=== PATIENT | female | born 1930 | race Caucasian/White ===

== ENCOUNTER 2018-12-01 07:33 | Inpatient (IN) | payer OTHER, MEDICARE ==
--- NOTE | 2018-12-01 08:06 | PDOC ---
History of Present Illness - General Chief Complaint: Nausea/Vomiting Stated Complaint: ABD PAIN Time Seen by Provider: 12/01/18 08:04 - History of Present Illness Initial Comments: 88yo F with PMH of HTN, HLD, pancreatitis, cholecystectomy, ERCP in 2016 presenting with abdominal pain. Patient states her pain started at 2:30 am and describes it as "sharp" and rated 10/10. She has never had pain like this before. Patient also endorses nausea and 4-5 episodes of NBNB vomiting. Last bowel movement was yesterday morning and was a normal formed brown stool with blood. Denies urinary symptoms, chest pain, or shortness of breath. No fevers, but endorses chills. PCP: Dr. Caldwell Past History - Past Medical History Allergies/Adverse Reactions: Allergies Allergy/AdvReac Type Severity Reaction Status Date / Time No Known Allergies Allergy Verified 12/01/18 07:48 Home Medications: Ambulatory Orders Amlodipine Besylate [Norvasc -] 7.5 mg PO DAILY 08/29/16 Aspirin [Ecotrin] 81 mg PO DAILY 08/29/16 Metoprolol Succinate [Toprol XL -] 50 mg PO DAILY 08/30/16 Atorvastatin Ca [Lipitor] 80 mg PO HS 06/12/17 Ubidecarenone/Vitamin E [Co Q-10 50 mg Softgel] 1 tab PO DAILY 06/12/17 Anemia: No Asthma: No Cancer: No Cardiac Disorders: No CVA: No COPD: No CHF: No Dementia: No Diabetes: No GI Disorders: No Disorders: No HTN: Yes Hypercholesterolemia: No Liver Disease: No Seizures: No Thyroid Disease: No - Surgical History Cholecystectomy: Yes - Suicide/Smoking/Psychosocial Hx Smoking History: Former smoker Have you smoked in the past 12 months: No Information on smoking cessation initiated: No Hx Alcohol Use: No Drug/Substance Use Hx: No Substance Use Type: None Hx Substance Use Treatment: No Review of Systems - Review of Systems Comments:: Constitutional: no fever, +chills HEENT: no throat pain, no dysphagia Cardiovascular: no chest pain, no palpitations Respiratory: no cough, no shortness of breath Gastrointestinal: +abdominal pain, +vomiting Genitourinary: no dysuria, no frequency Musculoskeletal: no myalgia, no arthralgia Skin: no rash, no itching Neurologic: no headache, no dizziness *Physical Exam - Vital Signs Last Vital Signs Temp Pulse Resp BP Pulse Ox 97.8 F 103 H 20 154/93 95 12/01/18 07:54 12/01/18 07:54 12/01/18 07:54 12/01/18 07:54 12/01/18 07:54 - Physical Exam Comments: General: Awake, alert, and fully oriented, in no acute distress Head: No signs of trauma Eyes: EOMI, sclera anicteric ENT: Dry mucus membranes Neck: Normal ROM, supple Lungs: Lungs clear, Normal breath sounds Cardio: Regular rhythm, S1 and S2 present Abdomen: Tender to palpation of RUQ. Soft. No guarding, no rebound, no masses Extremities: Normal range of motion, Distal pulses present, 1+ edema SKIN: Warm, Dry, normal turgor Neurologic: Cranial nerves II through XII grossly intact. Normal speech Moderate Sedation - Procedure Monitoring Vital Signs: Procedure Monitoring Vital Signs Temperature 97.8 F 12/01/18 07:54 Pulse Rate 103 H 12/01/18 07:54 Respiratory Rate 20 12/01/18 07:54 Blood Pressure 154/93 12/01/18 07:54 O2 Sat by Pulse Oximetry (%) 95 12/01/18 07:54 ED Treatment Course - LABORATORY CBC & Chemistry Diagram: 12/01/18 08:50 12/01/18 08:50 Medical Decision Making - Medical Decision Making 88yo F with PMH of HTN, HLD, pancreatitis, cholecystectomy, ERCP in 2016 presenting with abdominal pain. Per chart review, patient was seen in 2016 at this hospital with similar complaint. ERCP was performed. Stent placed and removed. DDX including but not limited to pancreatitis, acalculous biliary colic, nephrolithiasis, SBO, mesenteric ischemia CBC, CMP, lipase, EKG, lactate 500cc NS, 4mg zofran, 2mg morphine EKG: rate 93, QTc 427, NSR 12/01/18 09:20 Lactate 3.3, another 500cc ordered. WBC=12 Transaminitis, AST/ZOM=3196/863 ALP 317 Tpn negative Lipase negative BNP 680 (patient has been much higher in the past) RUQ pathology likely; will assess with RUQ US Patient reports some relief of abd pain, now rated 8/10 and "pounding" instead of "sharp" 12/01/18 09:34 RUQ US: Choledocholithiasis cannot be excluded 12/01/18 12:59 Plan to consult GI and admit. 12/01/18 13:[address] Mayfield GI, who recommended antibiotics (levaquin/ flagyl or zosyn) and MRCP Zosyn and MRCP ordered 12/01/18 14:00 *DC/Admit/Observation/Transfer Diagnosis at time of Disposition: Choledocholithiasis - Discharge Dispostion Condition at time of disposition: Guarded Decision to Admit order: Yes - Referrals - Patient Instructions - Post Discharge Activity
[2018-12-01] MEDS ORDERED: ONDANSETRON 4 MG/2 ML VIAL IVPUSH ONE (08:30)
[2018-12-01] MEDS ORDERED: SODIUM CHLORIDE 500 ML IV STA ×2 (08:31→10:49)
[2018-12-01] MEDS ORDERED: morphine CARPU-JECT 2 MG/1 ML DISP.SYRIN IVPUSH ONE ×2 (08:45→13:36)
[2018-12-01] MEDS ORDERED: ONDANSETRON 4 MG/2 ML VIAL ONE (08:53)
[2018-12-01] MEDS ORDERED: MORPHINE SULFATE 2 MG/ML VIAL ONE ×2 (08:53→14:38)
--- NOTE | 2018-12-01 08:54 | PDOC ---
Attending Attestation - Resident Resident Name: Gail Ybarra - ED Attending Attestation I have performed the following: I have examined & evaluated the patient, The case was reviewed & discussed with the resident, I agree w/resident's findings & plan, Exceptions are as noted - HPI HPI: 12/01/18 08:55 88y F hx of cholecystemy, pancratitis sp biliar obstruction , htn, hl, presents abd pain, n/v since last night around 230am, worse in the BARAK, pain is 10/10. endorses of nausea and 4 episodes of nbnb vomiting. last bm was last night without bpr, melena. denies any urinary symptoms denies fever, cp, sob, cough GI Lantin PE: tachy lungs cta b/l abd, BARAK ttp, neg murphies 2+ pitting edmea b/l ddx includings acalculus biliar disease, pancreatitis, mesenteric istchemia, consider acs , kidney stones morphine for pain NS for management of the pts tachycardia zofraon for nausea will reassess - Physicial Exam PE: 12/02/18 16:45 see above - Medical Decision Making 12/01/18 14:53 labs reviewd noted for elevated LFTs US performed stqarted abx consulted GI will admit for MRCP dx eleveted liver enzyems, suspected choledocholithaisis Heart Score/ECG Review - ECG Impressions Comment:: 12/01/18 11:02 Twelve-lead EKG was performed and reviewed by me. There is normal sinus rhythm with a normal rate. Rate of 93 The axis is normal. The intervals are normal. Nonspecific ST wave changes
[2018-12-01 09:21] LABS: BASO % 0.1 % (0-2.0); HEMATOCRIT 36.4 % (32.4-45.2); HEMOGLOBIN 12.3 GM/dL (10.7-15.3); LYMPH % 2.3 % (8-40); MCH 29.4 pg (25.7-33.7); MCHC 33.7 g/dl (32.0-36.0); MEAN CELL VOLUME 87.2 fl (80-96); MEAN PLT VOLUME 7.9 fl (7.5-11.1); NEUT % 96.6 % (42.8-82.8); PLATELET COUNT 239 K/MM3 (134-434); RBC 4.17 M/mm3 (3.60-5.2); RDW 13.9 % (11.6-15.6)
[2018-12-01 10:27] LABS: ALBUMIN 3.8 g/dl (3.4-5.0); ALK PHOS 317 U/L (45-117); ANION GAP 12 MMOL/L (8-16); BILIRUBIN,TOTAL 2.5 mg/dL (0.2-1); BLOOD UREA NITROGEN 26 mg/dL (7-18); CALCIUM 8.8 mg/dL (8.5-10.1); CHLORIDE 101 mmol/L (98-107); CO2 26 mmol/L (21-32); CREATININE 1.4 mg/dL (0.55-1.3); GLUCOSE,RANDOM 112 mg/dL (74-106); LIPASE 187 U/L (73-393); N-TERMINAL BNP 680.2 pg/ml (5-450); SGOT/AST 1795 U/L (15-37); SGPT/ALT 863 U/L (13-61); SODIUM 138 mmol/L (136-145); TOT PROT 7.5 g/dl (6.4-8.2)
[2018-12-01] MEDS ORDERED: PIPERACILLIN/TAZOB 4.5 GM 4.5 GM in DEXTROSE 5%-WATER 100 ML IVPB ONE (14:01)
[2018-12-01] MEDS ORDERED: ONDANSETRON 4 MG/2 ML VIAL IVPUSH PRN (14:12)
[2018-12-01] MEDS ORDERED: morphine SULFATE 4 MG/ML VIAL IVPUSH PRN (14:12)
[2018-12-01] MEDS ORDERED: POTASSIUM CHLORIDE 20 MEQ PREMIX IVPB 100 ML IVPB ONE (14:18)
[2018-12-01 14:21] LABS: ANISOCYTOSIS 2+; MACROCYTOSIS 0; OVALOCYTE 1+; PLATELET ESTIMATE NORMAL
--- NOTE | 2018-12-01 14:21 | HP ---
Admitting History and Physical - Primary Care Physician PCP: Shawn Caldwell - Admission Chief Complaint: Epigastric pain History of Present Illness: 88 yrs old pleasant F lives alone , independent, H/O HTN, Dyslipedemia, Cholycystectomy and pancreatitis, present with c/o epigastric pain radiates to back 1010 started last night around 2.30 am with nausea and recurrent vomiting mixed with bile and ingested food denies any fever, chills, constipation or diarrhea, came to Ed for evaluation w/u shows elevated TWBC, SGOT/SGPT alk phosphate and TB , abd ultrasound shows intrahepatic and extrahepatic dilatation of CBD, Gi consulted recommended MRCP and Hospitalization with IV abx, at the time of examination, jd patient was admitted on 08/30/2016 with Dilated CBD after Cholycytectomy underwent ERCP by Dr. 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 for EUS (Dr ROSSI). History Source: Patient - Past Medical History Cardiovascular: Yes: Hyperlipdemia Gastrointestinal: Yes: Pancreatitis Hepatobiliary: Yes: Choledocholithiasis - Past Surgical History Past Surgical History: Yes: Cholecystectomy - Smoking History Smoking history: Former smoker Have you smoked in the past 12 months: No - Alcohol/Substance Use Hx Alcohol Use: No Home Medications - Allergies Allergies/Adverse Reactions: Allergies Allergy/AdvReac Type Severity Reaction Status Date / Time No Known Allergies Allergy Verified 12/01/18 07:48 - Home Medications Home Medications: Ambulatory Orders Amlodipine Besylate [Norvasc -] 7.5 mg PO DAILY 08/29/16 Aspirin [Ecotrin] 81 mg PO DAILY 08/29/16 Metoprolol Succinate [Toprol XL -] 50 mg PO DAILY 08/30/16 Atorvastatin Ca [Lipitor] 80 mg PO HS 06/12/17 Ubidecarenone/Vitamin E [Co Q-10 50 mg Softgel] 1 tab PO DAILY 06/12/17 Family Disease History - Family Disease History Family History: Unremarkable (not contributary to this hospitalization) Review of Systems - Review of Systems Constitutional: denies: Chills, Diaphoresis, Fever, Lethargy Eyes: denies: Blind Spots, Blurred Vision HENT: denies: Difficult Swallowing, Ear Discharge, Ear Pain Neck: denies: Decreased ROM, Lumps, Pain on Movement, Stiffness Cardiovascular: denies: Chest Pain, Edema, Palpitations, Shortness of Breath Respiratory: denies: Cough, Exercise Intolerance, Hemoptysis Gastrointestinal: reports: Abdominal Pain, Nausea, Vomiting. denies: Constipation, Diarrhea Genitourinary: denies: Burning, Discharge Musculoskeletal: denies: Back Pain, Crepitus Neurological: denies: Change in LOC, Change in Speech, Confusion Pain Intensity: 0 Physical Examination Vital Signs: Vital Signs Temperature 97.8 F 12/01/18 07:54 Pulse Rate 103 H 12/01/18 07:54 Respiratory Rate 20 12/01/18 07:54 Blood Pressure 154/93 12/01/18 07:54 O2 Sat by Pulse Oximetry (%) 95 12/01/18 07:54 Constitutional: Yes: No Distress, Calm HENT: Yes: Atraumatic, Other (Mm moist, no anemia, no Jaundice, PERRLA) Neck: Yes: Supple, Trachea Midline Cardiovascular: Yes: Regular Rate and Rhythm, S1, S2. No: JVD, Gallop, Murmur Respiratory: Yes: Regular, CTA Bilaterally Gastrointestinal: Yes: Normal Bowel Sounds, Soft, Tenderness, Epigastrium Musculoskeletal: Yes: Back Pain. No: Joint Stiffness, Joint Swelling Edema: No Edema: RUE: Trace, LLE: Trace Peripheral Pulses WNL: Yes Peripheral Pulses: Left Doralis Pedis: 1+, Right Dorsalis Pedis: 1+ Neurological: Yes: Alert, Oriented, Cran Nerves II-XII Intact ...Motor Strength: WNL, LUE, LLE, RUE, RLE Labs: CBC, BMP CBC,CMP WBC 12.0 K/mm3 (4.0-10.0) H 12/01/18 08:50 RBC 4.17 M/mm3 (3.60-5.2) 12/01/18 08:50 Hgb 12.3 GM/dL (10.7-15.3) 12/01/18 08:50 Hct 36.4 % (32.4-45.2) 12/01/18 08:50 MCV 87.2 fl (80-96) 12/01/18 08:50 MCH 29.4 pg (25.7-33.7) 12/01/18 08:50 MCHC 33.7 g/dl (32.0-36.0) 12/01/18 08:50 RDW 13.9 % (11.6-15.6) 12/01/18 08:50 Plt Count 239 K/MM3 (134-434) D 12/01/18 08:50 MPV 7.9 fl (7.5-11.1) 12/01/18 08:50 Absolute Neuts (auto) 11.6 K/mm3 (1.5-8.0) H 12/01/18 08:50 Neutrophils % 96.6 % (42.8-82.8) H D 12/01/18 08:50 Neutrophils % (Manual) 78.0 % (42.8-82.8) 12/01/18 08:50 Band Neutrophils % 16.0 % 12/01/18 08:50 Lymphocytes % 2.3 % (8-40) L D 12/01/18 08:50 Lymphocytes % (Manual) 2.0 % (8-40) L 12/01/18 08:50 Monocytes % 1.0 % (3.8-10.2) L D 12/01/18 08:50 Monocytes % (Manual) 1 % (3.8-10.2) L 12/01/18 08:50 Eosinophils % 0.0 % (0-4.5) D 12/01/18 08:50 Eosinophils % (Manual) 0.0 % (0-4.5) 12/01/18 08:50 Basophils % 0.1 % (0-2.0) 12/01/18 08:50 Basophils % (Manual) 0.0 % (0-2.0) 12/01/18 08:50 Myelocytes % (Man) 0 % (0-2) 12/01/18 08:50 Promyelocytes % (Man) 0 % (0-2) 12/01/18 08:50 Blast Cells % (Manual) 0 % (0-0) 12/01/18 08:50 Nucleated RBC % 0 % (0-0) 12/01/18 08:50 Metamyelocytes 3 % (0-2) H 12/01/18 08:50 Hypochromia 0 12/01/18 08:50 Platelet Estimate Normal 12/01/18 08:50 Platelet Comment Present 12/01/18 08:50 Polychromasia 0 12/01/18 08:50 Poikilocytosis 0 03/02/19 08:50 Anisocytosis 2+ 12/01/18 08:50 Microcytosis 2+ 12/01/18 08:50 Macrocytosis 0 12/01/18 08:50 Spherocytes 2+ 12/01/18 08:50 Ovalocytes 1+ 12/01/18 08:50 Derik Cells 1+ 12/01/18 08:50 Acanthocytes (Spur) 1+ 12/01/18 08:50 Sodium 138 mmol/L (136-145) 12/01/18 08:50 Potassium 3.0 mmol/L (3.5-5.1) L 12/01/18 08:50 Chloride 101 mmol/L (98-107) 12/01/18 08:50 Carbon Dioxide 26 mmol/L (21-32) 12/01/18 08:50 Anion Gap 12 MMOL/L (8-16) 12/01/18 08:50 BUN 26 mg/dL (7-18) H 12/01/18 08:50 Creatinine 1.4 mg/dL (0.55-1.3) H 12/01/18 08:50 Creat Clearance w eGFR 35.65 (>60) 12/01/18 08:50 Random Glucose 112 mg/dL (74-106) H 12/01/18 08:50 Lactic Acid 1.8 mmol/L (0.4-2.0) 12/01/18 12:54 Calcium 8.8 mg/dL (8.5-10.1) 12/01/18 08:50 Total Bilirubin 2.5 mg/dL (0.2-1) H 12/01/18 08:50 AST 1795 U/L (15-37) H 12/01/18 08:50 ALT 863 U/L (13-61) H 12/01/18 08:50 Alkaline Phosphatase 317 U/L (45-117) H 12/01/18 08:50 Troponin I < 0.02 ng/ml (0.00-0.05) 12/01/18 08:50 B-Natriuretic Peptide 680.2 pg/ml (5-450) H 12/01/18 08:50 Total Protein 7.5 g/dl (6.4-8.2) 12/01/18 08:50 Albumin 3.8 g/dl (3.4-5.0) 12/01/18 08:50 Lipase 187 U/L (73-393) 12/01/18 08:50 Imaging - Results Ultrasound: Report Reviewed (Intrahepatic and extrahepatic CBD Dilatation 2 CM) MRI: Report Reviewed (MRCP: Pending) Problem List - Problems (1) Choledocholithiasis Assessment/Plan: Patient ultrasound shows Dilated CBD with pain and rising BUN Creat possibility of ascending cholangitis with obstruction in CBD patient has H/O Cholycystectomy in the past. GI consulted recommended IV abx, MRCP , NPO except meds and pain control. previously in 08/2016 patient was presented with similar presentation underwent ERCP and stent placement patient was transferred to Dr Rossi at [facility] fir EUS to establish a diagnosis cholangicarcinoma/proximal CBD stricture. Code(s): K80.50 - CALCULUS OF BILE DUCT W/O CHOLANGITIS OR CHOLECYST W/O OBST (2) Biliary tract obstruction Assessment/Plan: Elevted Alk Phosphate TB high SGOT/PT with Code(s): K83.1 - OBSTRUCTION OF BILE DUCT (3) HTN (hypertension) Assessment/Plan: Well controlled cont current medication Code(s): I10 - ESSENTIAL (PRIMARY) HYPERTENSION (4) Hypercholesteremia Assessment/Plan: cont statin Code(s): E78.00 - PURE HYPERCHOLESTEROLEMIA, UNSPECIFIED (5) Hypokalemia Assessment/Plan: repleted F/U BMP Code(s): E87.6 - HYPOKALEMIA
[2018-12-01] MEDS ORDERED: PANTOPRAZOLE SODIUM 40 MG VIAL ONE (14:39)
[2018-12-01] MEDS ORDERED: PIPERACILLIN/TAZOB 4.5 GM 4.5 GM/100 ML BAG IVPB ONE ×2 (14:39→14:40)
[2018-12-01] MEDS ORDERED: KCL 10 MEQ IVPB 10 MEQ/100 ML INFUS.BAG IVPB ONE (14:40)
[2018-12-01] MEDS: SODIUM CHLORIDE 1,000 ML IV SCH (14:41)
[2018-12-01] MEDS: PANTOPRAZOLE SODIUM 40 MG VIAL IVPUSH SCH (14:42)
[2018-12-01] MEDS: KCL 10 MEQ IVPB 10 MEQ/100 ML INFUS.BAG IVPB SCH ×2 (15:25→16:33)
[2018-12-01 15:58] VITALS: BMI 26.1
--- NOTE | 2018-12-01 17:44 | CONS ---
DATE OF CONSULTATION: DATE OF DICTATION: 12/01/2018 The patient is an 88-year-old female with a past medical history of hypertension, dyslipidemia, cholecystectomy, pancreatitis, who presents to the hospital with abdominal pain and back pain, which began at 2:30 in the morning. Also with nausea and vomiting. She has never had similar symptoms in the past. She denies any hematemesis, melena, hematochezia, constipation or diarrhea. She also denies fever or chills, previous episodes. No culprit foods and no recent travel or antibiotics. She states she has not had a recent endoscopy or colonoscopy. PAST MEDICAL AND SURGICAL HISTORY: As listed in the HPI. ALLERGIES: No known drug allergies. SOCIAL HISTORY: She is a former smoker. Does not drink or use drugs. MEDICATIONS: Home medications were reviewed and include Norvasc, aspirin, metoprolol, Lipitor and CoQ10. FAMILY HISTORY: Denies any GI or gynecological malignancy. REVIEW OF SYSTEMS: As per the HPI. PHYSICAL EXAMINATION: Vital Signs: Temperature 98.8, pulse 93, blood pressure 130/50, respiratory rate 12, pulse oximetry 98% on room air. General: In no acute distress, pleasant female. HEENT: Anicteric sclerae. Cardiovascular: S1/S2. Regular rate and rhythm. Lungs: Bilaterally clear to auscultation. Abdomen: Soft, with some tenderness to deep palpation in the epigastrium. No rebound or guarding. Extremities: With edema. DIAGNOSTIC STUDIES: White blood cell count 12, hemoglobin 12, hematocrit 36, MCV 87, platelet count 239, neutrophils 96.6. Sodium 138, potassium 3, BUN 26, creatinine 1.4, lactic acid 3.3 and repeat is 1.1. Total bilirubin 2.5. AST 1795, ALT 863, alkaline phosphatase 317. BNP 680. Albumin 3.8. Lipase 187. Troponin is negative. Coags were not drawn. She had an ultrasound of the abdomen which revealed cholecystectomy, dilation of both the intra- and extrahepatic biliary tree with the CBD measuring 2 cm, which is increased in size since 2018, at which time the duct measured 1.7 cm. Calculi were identified within the duct on that study in 2016. Liver is of normal size, without any intrahepatic masses seen. The pancreas is within normal limits. IMPRESSION: Transaminitis, hepatocellular pattern, also with a dilated biliary tree and a previous history of scans which revealed choledocholithiasis. It is unclear if her ducts were ever cleared at the time. Included in the differential diagnosis is recurrent obstruction, choledocholithiasis, and acute hepatitis. RECOMMENDATION: N.p.o., IV fluids. Would start her on empiric antibiotics, Levaquin and Flagyl or Zosyn. MRCP will be ordered to further evaluate the biliary three. Would also obtain a surgery consultation. Trend her liver tests q.12 hours. Would also obtain an INR. Chronic and inherited liver serologies will be ordered. I will follow with you. DO ENRRIQUE LEBLANC/[id number]
[2018-12-01] MEDS ORDERED: DEXTROSE 5%-WATER 100 ML IVPB ONE (20:18)
[2018-12-01] MEDS ORDERED: PIPERACILLIN/TAZOBACTAM 4.5 GM VIAL IVPB ONE (20:18)
[2018-12-01] MEDS: PIPERACILLIN/TAZOB 4.5 GM 4.5 GM in DEXTROSE 5%-WATER 100 ML IVPB SCH (21:26)
[2018-12-02] MEDS ORDERED: PIPERACILLIN/TAZOBACTAM 4.5 GM VIAL IVPB ONE ×2 (00:05→08:44)
[2018-12-02] MEDS ORDERED: DEXTROSE 5%-WATER 100 ML IVPB ONE ×2 (00:05→08:44)
[2018-12-02 01:13] LABS: URINE APPEARANCE CLEAR; URINE BILIRUBIN NEGATIVE (<2.0 mg/dL); URINE COLOR DKYELLOW; URINE GLUCOSE (UA) NEGATIVE (NEGATIVE); URINE KETONE NEGATIVE (NEGATIVE); URINE LEUK ESTERASE NEGATIVE (NEGATIVE); URINE NITRITE NEGATIVE (NEGATIVE); URINE PROTEIN 2+ (NEGATIVE); URINE UROBILINOGEN 4.0 E.U/dl mg/dL (0.2-1.0)
[2018-12-02 01:18] LABS: EPI CELLS RARE /HPF (FEW)
[2018-12-02] MEDS: PIPERACILLIN/TAZOB 4.5 GM 4.5 GM in DEXTROSE 5%-WATER 100 ML IVPB SCH ×5 (03:00→19:40)
[2018-12-02 07:50] LABS: BASO % 0.2 % (0-2.0); EOS % 0.1 % (0-4.5); HEMATOCRIT 33.5 % (32.4-45.2); HEMOGLOBIN 11.5 GM/dL (10.7-15.3); LYMPH % 1.6 % (8-40); MCH 29.9 pg (25.7-33.7); MCHC 34.4 g/dl (32.0-36.0); MEAN CELL VOLUME 86.9 fl (80-96); MEAN PLT VOLUME 8.2 fl (7.5-11.1); MONO % 2.3 % (3.8-10.2); NEUT % 95.8 % (42.8-82.8); PLATELET COUNT 159 K/MM3 (134-434); RBC 3.86 M/mm3 (3.60-5.2); WHITE BLOOD COUNT 15.4 K/mm3 (4.0-10.0)
[2018-12-02 08:16] LABS: INR 1.24 (0.83-1.09); PROTHROMBIN TIME (PATIENT) 14.7 SEC (9.7-13.0)
[2018-12-02 08:30] LABS: ALK PHOS 250 U/L (45-117); ANION GAP 10 MMOL/L (8-16); BILIRUBIN,TOTAL 5.1 mg/dL (0.2-1); BLOOD UREA NITROGEN 18 mg/dL (7-18); CALCIUM 7.8 mg/dL (8.5-10.1); CHLORIDE 101 mmol/L (98-107); CO2 26 mmol/L (21-32); CREATININE 1.3 mg/dL (0.55-1.3); GLUCOSE,RANDOM 101 mg/dL (74-106); SGOT/AST 792 U/L (15-37); SGPT/ALT 653 U/L (13-61); SODIUM 137 mmol/L (136-145); TOT PROT 6.2 g/dl (6.4-8.2)
[2018-12-02] MEDS: amLODIPine BESYLATE 2.5 MG TABLET (FP) PO SCH ×3 (09:07→11:01)
[2018-12-02] MEDS: PANTOPRAZOLE SODIUM 40 MG VIAL IVPUSH SCH (09:08)
[2018-12-02] MEDS: ASPIRIN COATED 81 MG TABLET.EC PO SCH ×4 (09:08→11:00)
--- NOTE | 2018-12-02 09:45 | PN ---
Progress Note (short form) - Note Progress Note: ID consult dictated abdominal pain abnl lfts leukocytosis dilated CBD r/o biliary sepsis r/o retained stone ckd prior history of abnormal lfts in 2016 s/p ercp 2016 transferred to [facility]- reports stent removed and that she had a stone at that time also episode of hemorrhoidal bleeding at that time reports hot flashes, not aware if she had fever abdominal pain and vomiting started suddenly on 11/30 elevated lfts, elevated wbc and lactic acid in ED us with dilated hepatic ducts and CBD seen by GI for MRCP continue zosyn adjust for crcl 32 Problem List - Problems (1) Biliary sepsis Code(s): K83.09 - OTHER CHOLANGITIS (2) Abnormal LFTs Code(s): R94.5 - ABNORMAL RESULTS OF LIVER FUNCTION STUDIES (3) Common bile duct dilatation Code(s): K83.8 - OTHER SPECIFIED DISEASES OF BILIARY TRACT (4) CKD (chronic kidney disease) Code(s): N18.9 - CHRONIC KIDNEY DISEASE, UNSPECIFIED
--- NOTE | 2018-12-02 10:16 | PN ---
Progress Note, Physician Chief Complaint: right upper quadrant abdominal pain - improved from yesterday ; no fever / nausea or vomiting today - Current Medication List Current Medications: Active Medications Amlodipine Besylate (Norvasc -) 7.5 mg PO DAILY [facility] Last Admin: 12/02/18 09:20 Dose: Not Given Aspirin (Ecotrin -) 81 mg PO DAILY [facility] Last Admin: 12/02/18 09:20 Dose: Not Given Sodium Chloride (Normal Saline -) 1,000 mls @ 100 mls/hr IV ASDIR [facility] Last Admin: 12/01/18 14:41 Dose: 100 mls/hr Piperacillin Sod/Tazobactam (Sod 2.25 gm/ Dextrose) 50 mls @ 100 mls/hr IVPB Q6H-IV [facility]; Protocol Metoprolol Succinate (Toprol Xl -) 50 mg PO DAILY [facility] Last Admin: 12/02/18 09:20 Dose: Not Given Morphine Sulfate (Morphine Sulfate) 4 mg IVPUSH Q6H PRN PRN Reason: PAIN LEVEL 6-10 Ondansetron HCl (Zofran Injection) 4 mg IVPUSH Q6H PRN PRN Reason: NAUSEA Pantoprazole Sodium (Protonix Iv) 40 mg IVPUSH DAILY [facility] Last Admin: 12/02/18 09:08 Dose: 40 mg - Objective Vital Signs: Vital Signs Temperature 97.8 F 12/02/18 06:52 Pulse Rate 107 H 12/02/18 06:52 Respiratory Rate 20 12/02/18 06:52 Blood Pressure 156/78 12/02/18 06:52 O2 Sat by Pulse Oximetry (%) 98 12/01/18 14:30 Constitutional: Yes: Well Nourished Eyes: Yes: WNL HENT: Yes: WNL Neck: Yes: WNL Cardiovascular: Yes: WNL Respiratory: Yes: WNL, Regular, CTA Bilaterally Gastrointestinal: Yes: WNL, Normal Bowel Sounds, Other (ruq tenderness , no rebound or guarding , nml bs) Edema: Yes Labs: CBC, BMP 12/02/18 06:10 12/02/18 06:10 INR, PTT INR 1.24 (0.83-1.09) H 12/02/18 06:10 Problem List - Problems (1) Abnormal LFTs Assessment/Plan: MRCP reviewed - choledocholithiasis - c/w zosyn - NPO / IVf's - trend LFT qd - Plan for ercp Monday - NPO midnight / am labs Code(s): R94.5 - ABNORMAL RESULTS OF LIVER FUNCTION STUDIES (2) Choledocholithiasis Code(s): K80.50 - CALCULUS OF BILE DUCT W/O CHOLANGITIS OR CHOLECYST W/O OBST (3) Common bile duct dilatation Code(s): K83.8 - OTHER SPECIFIED DISEASES OF BILIARY TRACT
[2018-12-02 10:23] LABS: POTASSIUM 2.9 mmol/L (3.5-5.1)
[2018-12-02] MEDS ORDERED: POTASSIUM CHLORIDE ORAL LIQUID 20 MEQ/15 ML PO ONE (10:49)
--- NOTE | 2018-12-02 10:56 | PN ---
Progress Note, Physician Chief Complaint: c/o abd pain - Current Medication List Current Medications: Active Medications Amlodipine Besylate (Norvasc -) 7.5 mg PO DAILY [facility] Last Admin: 12/02/18 09:20 Dose: Not Given Aspirin (Ecotrin -) 81 mg PO DAILY [facility] Last Admin: 12/02/18 09:20 Dose: Not Given Sodium Chloride (Normal Saline -) 1,000 mls @ 100 mls/hr IV ASDIR [facility] Last Admin: 12/01/18 14:41 Dose: 100 mls/hr Piperacillin Sod/Tazobactam (Sod 2.25 gm/ Dextrose) 50 mls @ 100 mls/hr IVPB Q6H-IV [facility]; Protocol Metoprolol Succinate (Toprol Xl -) 50 mg PO DAILY [facility] Last Admin: 12/02/18 09:20 Dose: Not Given Morphine Sulfate (Morphine Sulfate) 4 mg IVPUSH Q6H PRN PRN Reason: PAIN LEVEL 6-10 Ondansetron HCl (Zofran Injection) 4 mg IVPUSH Q6H PRN PRN Reason: NAUSEA Pantoprazole Sodium (Protonix Iv) 40 mg IVPUSH DAILY [facility] Last Admin: 12/02/18 09:08 Dose: 40 mg Potassium Chloride (Potassium Chloride Oral Liquid) 40 meq PO ONCE ONE Stop: 12/02/18 10:50 - Objective Vital Signs: Vital Signs Temperature 97.8 F 12/02/18 06:52 Pulse Rate 107 H 12/02/18 06:52 Respiratory Rate 20 12/02/18 06:52 Blood Pressure 156/78 12/02/18 06:52 O2 Sat by Pulse Oximetry (%) 98 12/01/18 14:30 Genaral:No Distress, Calm c/o abd pain HEENT: Yes: Atraumatic, Other (Mm moist, no anemia, no Jaundice, PERRLA) Neck: Yes: Supple, Trachea Midline Cardiovascular: Yes: Regular Rate and Rhythm, S1, S2. No: JVD, Gallop, Murmur Respiratory: Yes: Regular, CTA Bilaterally Gastrointestinal: : Normal Bowel Sounds, Soft, Tenderness, Epigastrium Musculoskeletal: Yes: Back Pain. No: Joint Stiffness, Joint Swellig, trace edema. No EXT:Peripheral Pulses + Neurological: Alert, Oriented, Cran Nerves II-XII Intact, Motor Strength: WNL, LUE, LLE, RUE, RLE Labs: CBC, BMP 12/02/18 06:10 12/02/18 06:10 INR, PTT INR 1.24 (0.83-1.09) H 12/02/18 06:10 - ....Imaging MRI: Report Reviewed (MRCP No Pancreatitis CBD 2 cm with impacted stone at distal end intrahepatic and extrahepatic Dilatation.) Problem List - Problems (1) Choledocholithiasis Assessment/Plan: Patient ultrasound shows Dilated CBD with pain and rising BUN Creat possibility of ascending cholangitis with obstruction in CBD patient has H/O Cholycystectomy in the past. GI consulted recommended IV abx, MRCP , NPO except meds and pain control. 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 Code(s): K80.50 - CALCULUS OF BILE DUCT W/O CHOLANGITIS OR CHOLECYST W/O OBST (2) Biliary tract obstruction Assessment/Plan: Elevted Alk Phosphate TB high SGOT/PT with Code(s): K83.1 - OBSTRUCTION OF BILE DUCT (3) HTN (hypertension) Assessment/Plan: Well controlled cont current medication Code(s): I10 - ESSENTIAL (PRIMARY) HYPERTENSION (4) Hypercholesteremia Assessment/Plan: cont statin Code(s): E78.00 - PURE HYPERCHOLESTEROLEMIA, UNSPECIFIED (5) Hypokalemia Assessment/Plan: K 2.9 replenish F/U BMP, Magnesian , BMP in PM Code(s): E87.6 - HYPOKALEMIA (6) Biliary sepsis Assessment/Plan: Due to obstructed CBD secondary impactyed stone , GI consulted on IV abx findings also discussed with Dr Li (previously put the Stent) recommended NPO possible stenting tomorrow after noon, mean time F/U GI recommendation Code(s): K83.09 - OTHER CHOLANGITIS
[2018-12-02 11:07] LABS: ANISOCYTOSIS 0; MACROCYTOSIS 0; PLATELET ESTIMATE NORMAL; SICKELED CELLS 1+
--- NOTE | 2018-12-02 12:31 | CONS ---
DATE OF CONSULTATION: DATE OF DICTATION: 12/01/2018 INFECTIOUS DISEASE CONSULTATION This is an 88-year-old woman who presents to the emergency room with acute onset of abdominal pain with nausea and vomiting that started around 2 oclock in the morning. She describes the pain as radiating to her back. She notes she has had hot flashes but denies any other fevers or chills. She has had no diarrhea. In the emergency room she was noted to have abnormal LFTs, an elevated white count, and an elevated lactic acid. She had a sonogram that showed intra and hepatic ductal dilatation including the common bile duct. She is status post cholecystectomy. She gives a history in 2016 of presenting to [facility] with similar findings and she had an ERCP. She was transferred to [facility] where she reports she ultimately had the stent removed and was told she passed a stone. She had a subsequent admission to [facility] where she had some rectal bleeding that was felt to be hemorrhoidal. Since that time she has not been hospitalized. PAST MEDICAL HISTORY: Is notable for hyperlipidemia, she had pancreatitis disassociated with the ERCP and the prior history of choledocholithiasis. She is status post cholecystectomy. SOCIAL HISTORY: There is no history of any cigarette use. She lives alone. She is . There has been no recent travel. She has had no sick contacts. ALLERGIES: She has no known drug allergies. MEDICATIONS AN OUTPATIENT: Include amlodipine, aspirin, metoprolol, Lipitor. FAMILY HISTORY: Noncontributory. REVIEW OF SYSTEMS: She denies cough or chest pain but notes she has continued pain radiating from her abdomen to her back. She denies any dysuria or trouble urinating. PHYSICAL EXAMINATION: General: She is a pleasant woman in no acute distress. Vital Signs: Temperature is 98.6, pulse is 106, blood pressure 154/72, respiratory rate is 20. Her T-Max has been 99.8 which was on admission. HEENT: She is normocephalic. Her eyes are mildly icteric. Neck: Supple. Lungs: Clear to auscultation. Heart: Regular rate and rhythm. Abdomen: Soft. She has midepigastric pain radiating to her back. Extremities: Without edema. LABORATORY DATA: Her labs are notable for a white count on admission of 12, this morning is 15.4, hemoglobin 11.5, platelets are 159. INR is 1.2. BUN and creatinine are 18 and 1.3. She has a calculated creatinine clearance of 32. Her total bilirubin has jumped from 2.5 to 5.1, AST of 792, ALT of 653 with an alkaline phosphatase of 250. Her urinalysis is negative. An amylase and lipase done in the emergency room is normal. Ultrasound findings as stated show status post cholecystectomy with dilatation of the biliary tree, choledocholithiasis cannot be excluded. Lactic acid on admission was 3.3, after hydration was 1.8. IN SUMMARY: This is an elderly woman with abdominal pain, abnormal LFTs, leukocytosis down at the common bile duct. Rule out biliary sepsis; rule out retained stones in the setting of CKD. She was seen by [facility] with plans for MI[facility]. Blood cultures have been sent and are pending. We will continue Zosyn adjusted for her creatinine clearance. Further recommendations to follow. Hel[place] [id number]
[2018-12-02] MEDS ORDERED: POTASSIUM CHLORIDE 20 MEQ PREMIX IVPB 100 ML IVPB SCH (14:15)
[2018-12-02] MEDS ORDERED: PIPERACILLIN/TAZOBACTAM 2.25 GM VIAL IVPB ONE ×2 (15:07→20:28)
[2018-12-02] MEDS ORDERED: DEXTROSE 5%-WATER - 50 ML IVPB ONE ×2 (15:07→20:28)
[2018-12-02] MEDS: PIPERACILLIN/TAZOB 2.25 GM 2.25 GM in DEXTROSE 5%-WATER - 50 ML IVPB SCH ×2 (15:13→20:57)
[2018-12-02] MEDS: SODIUM CHLORIDE 1,000 ML IV SCH (15:15)
[2018-12-02] MEDS: KCL 10 MEQ IVPB 10 MEQ/100 ML INFUS.BAG IVPB SCH ×3 (16:33→18:43)
[2018-12-02 20:21] LABS: ANION GAP 9 MMOL/L (8-16); BLOOD UREA NITROGEN 20 mg/dL (7-18); CALCIUM 7.5 mg/dL (8.5-10.1); CHLORIDE 104 mmol/L (98-107); CO2 26 mmol/L (21-32); CREATININE 1.4 mg/dL (0.55-1.3); GLUCOSE,RANDOM 90 mg/dL (74-106); MAGNESIUM 1.8 mg/dL (1.8-2.4); POTASSIUM 3.9 mmol/L (3.5-5.1); SODIUM 140 mmol/L (136-145)
[2018-12-03] MEDS ORDERED: PIPERACILLIN/TAZOBACTAM 2.25 GM VIAL IVPB ONE ×4 (00:30→20:01)
[2018-12-03] MEDS ORDERED: DEXTROSE 5%-WATER - 50 ML IVPB ONE ×4 (00:31→20:02)
[2018-12-03] MEDS: PIPERACILLIN/TAZOB 2.25 GM 2.25 GM in DEXTROSE 5%-WATER - 50 ML IVPB SCH ×4 (03:19→20:07)
[2018-12-03 07:41] LABS: BASO % 0.2 % (0-2.0); EOS % 6.1 % (0-4.5); HEMOGLOBIN 11.6 GM/dL (10.7-15.3); LYMPH % 2.7 % (8-40); MCH 29.8 pg (25.7-33.7); MCHC 34.1 g/dl (32.0-36.0); MEAN CELL VOLUME 87.3 fl (80-96); MEAN PLT VOLUME 8.6 fl (7.5-11.1); MONO % 1.9 % (3.8-10.2); NEUT % 89.1 % (42.8-82.8); PLATELET COUNT 129 K/MM3 (134-434); RBC 3.89 M/mm3 (3.60-5.2); RDW 14.6 % (11.6-15.6); WHITE BLOOD COUNT 13.7 K/mm3 (4.0-10.0)
[2018-12-03 08:01] LABS: ALBUMIN 2.5 g/dl (3.4-5.0); ALK PHOS 198 U/L (45-117); ANION GAP 10 MMOL/L (8-16); BILIRUBIN,TOTAL 3.9 mg/dL (0.2-1); BLOOD UREA NITROGEN 24 mg/dL (7-18); CALCIUM 7.6 mg/dL (8.5-10.1); CHLORIDE 106 mmol/L (98-107); CO2 25 mmol/L (21-32); CREATININE 1.3 mg/dL (0.55-1.3); GLUCOSE,RANDOM 72 mg/dL (74-106); POTASSIUM 3.6 mmol/L (3.5-5.1); SGOT/AST 347 U/L (15-37); SGPT/ALT 389 U/L (13-61); SODIUM 140 mmol/L (136-145); TOT PROT 5.8 g/dl (6.4-8.2)
[2018-12-03 08:13] LABS: INR 1.28 (0.83-1.09); PROTHROMBIN TIME (PATIENT) 15.2 SEC (9.7-13.0)
[2018-12-03] MEDS: amLODIPine BESYLATE 2.5 MG TABLET (FP) PO SCH (09:04)
[2018-12-03] MEDS: ASPIRIN COATED 81 MG TABLET.EC PO SCH (09:04)
[2018-12-03] MEDS: PANTOPRAZOLE SODIUM 40 MG VIAL IVPUSH SCH (09:04)
[2018-12-03] MEDS ORDERED: GLYCOPYRROLATE 0.2 MG/1 ML VIAL ONE ×3 (09:42)
[2018-12-03] MEDS ORDERED: ROCURONIUM BROMIDE 50 MG/5 ML VIAL ONE (09:42)
[2018-12-03] MEDS ORDERED: DEXAMETHASONE SOD PHOSPHATE 10 MG/1 ML VIAL ONE (09:42)
[2018-12-03] MEDS ORDERED: ETOMIDATE 20 MG/10 ML AMPUL IVPUSH ONE (09:42)
[2018-12-03] MEDS ORDERED: ONDANSETRON 4 MG/2 ML VIAL ONE (09:42)
[2018-12-03] MEDS ORDERED: NEOSTIGMINE METHYLSULFATE 0.5 MG/ML - 10 ML MDV ONE (09:42)
[2018-12-03] MEDS ORDERED: ONDANSETRON 4 MG/2 ML VIAL IVPUSH PRN (11:06)
[2018-12-03] MEDS ORDERED: PROMETHAZINE HCL 25 MG/1 ML VIAL IVPB PRN (11:06)
[2018-12-03] MEDS ORDERED: LACTATED RINGERS SOLUTION 1,000 ML IV SCH (11:15)
--- NOTE | 2018-12-03 11:48 | PN ---
Progress Note (short form) - Note Progress Note: GI Procedure NOte: Please see scanned ERCP report, Two smaller stones extracted but a large ?2cm stone cannot be extracted. I placed a 7FR x 5cm length stent to provide drainage of the CBD. I discussed the case with Dr Sancho Rossi at [facility] who can extract this stone with ultrasonic lithotripsy. Discussed situation with nephews as Nuzhat has been yet been extubated. The next ERCP may be done as an [id number] is Nuzhat recovers adequately.
--- NOTE | 2018-12-03 13:59 | EKG ---
Test Reason : Blood Pressure : / mmHG Vent. Rate : 090 BPM Atrial Rate : 090 BPM P-R Int : 132 ms QRS Dur : 072 ms QT Int : 354 ms P-R-T Axes : 061 059 059 degrees QTc Int : 433 ms NORMAL SINUS RHYTHM NONSPECIFIC ST ABNORMALITY ABNORMAL ECG WHEN COMPARED WITH ECG OF 11-SEP-2016 08:52, NO SIGNIFICANT CHANGE WAS FOUND Confirmed by LORRAINE PEGUERO MD ([id number]) on 12/03/2018 1:58:34 PM Referred By: Confirmed By:LORRAINE PEGUERO MD
[2018-12-03] MEDS: LACTATED RINGERS SOLUTION 1,000 ML IV SCH (16:28)
[2018-12-03 17:12] LABS: HEP.C VIRUS AB <0.1 s/co ratio (0.0-0.9)
--- NOTE | 2018-12-03 20:37 | PN ---
Progress Note (short form) - Note Progress Note: SUBJECTIVE: Feels well post ERCP. No abdominal pain/nausea/vomiting. No fever/ chills. OBJECTIVE: Afebrile,Hemodynamicaly Stable. Last Vital Signs Temp Pulse Resp BP Pulse Ox 97.6 F 78 18 116/53 L 94 L 12/03/18 20:00 12/03/18 20:00 12/03/18 20:00 12/03/18 20:00 12/03/18 15:45 HEENT - Atraumatic, Normocpehalic Heart - S1, S2, SM Lungs - decreased air entry bibasally Abdomen - Mild RUQ tenderness, soft. Bowel Sounds normal. Extremities - Mild edema, no calf tenderness Laboratory Results - last 24 hr 12/01/18 12/01/18 12/01/18 17:48 17:48 17:48 WBC RBC Hgb Hct MCV MCH MCHC RDW Plt Count MPV Absolute Neuts (auto) Neutrophils % Lymphocytes % Monocytes % Eosinophils % Basophils % Nucleated RBC % PT with INR INR Sodium Potassium Chloride Carbon Dioxide Anion Gap BUN Creatinine Creat Clearance w eGFR Random Glucose Calcium Total Bilirubin AST ALT Alkaline Phosphatase Total Protein Albumin YASSINE Screen Negative Smooth Musc &CORPORATE RECRUITER Intrp 13 Hepatitis A IgM Ab Negative Hep Bs Antigen Negative Hep B Core IgM Ab Negative Hepatitis C Antibody <0.1 12/03/18 12/03/18 12/03/18 06:00 06:00 06:00 WBC 13.7 H RBC 3.89 Hgb 11.6 Hct 34.0 MCV 87.3 MCH 29.8 MCHC 34.1 RDW 14.6 Plt Count 129 L MPV 8.6 Absolute Neuts (auto) 12.2 H Neutrophils % 89.1 H Lymphocytes % 2.7 L D Monocytes % 1.9 L Eosinophils % 6.1 H D Basophils % 0.2 Nucleated RBC % 0 PT with INR 15.20 H INR 1.28 H Sodium 140 Potassium 3.6 Chloride 106 Carbon Dioxide 25 Anion Gap 10 BUN 24 H Creatinine 1.3 Creat Clearance w eGFR 38.84 Random Glucose 72 L Calcium 7.6 L Total Bilirubin 3.9 H AST 347 H ALT 389 H Alkaline Phosphatase 198 H Total Protein 5.8 L Albumin 2.5 L YASSINE Screen Smooth Musc &CORPORATE RECRUITER Intrp Hepatitis A IgM Ab Hep Bs Antigen Hep B Core IgM Ab Hepatitis C Antibody Current Medications Generic Name Dose Route Start Last Admin Trade Name Freq PRN Reason Stop Dose Admin Amlodipine Besylate 7.5 mg 12/02/18 10:00 12/03/18 09:04 Norvasc - PO Not Given DAILY [facility] Aspirin 81 mg 12/02/18 10:00 12/03/18 09:04 Ecotrin - PO Not Given DAILY [facility] Fentanyl 50 mcg 12/03/18 11:06 Sublimaze Injection - IVPUSH [id number] PRN PAIN-PACU ORDER X 4 DOSES ONLY Sodium Chloride 1,000 mls @ 100 mls/hr 12/01/18 14:15 12/02/18 15:15 Normal Saline - IV 100 mls/hr ASDIR BREN Administration Piperacillin Sod/Tazobactam 50 mls @ 100 mls/hr 12/02/18 15:00 12/03/18 20:07 Sod 2.25 gm/ Dextrose IVPB 100 mls/hr Q6H-IV BREN Administration Protocol Lactated Ringer's 1,000 mls @ 125 mls/hr 12/03/18 15:30 12/03/18 16:28 Lactated Ringers Solution IV 125 mls/hr ASDIR BREN Administration Metoprolol Succinate 50 mg 12/02/18 10:00 12/03/18 09:04 Toprol Xl - PO Not Given DAILY [facility] Morphine Sulfate 4 mg 12/01/18 14:12 Morphine Sulfate IVPUSH Q6H PRN PAIN LEVEL 6-10 Ondansetron HCl 4 mg 12/01/18 14:12 Zofran Injection IVPUSH Q6H PRN NAUSEA Ondansetron HCl 4 mg 12/03/18 11:06 Zofran Injection IVPUSH Q6H PRN NAUSEA AND/OR VOMITING Pantoprazole Sodium 40 mg 12/01/18 14:15 12/03/18 09:04 Protonix Iv IVPUSH Not Given DAILY [facility] Promethazine HCl 12.5 mg 12/03/18 11:06 Phenergan Injection - IVPB Q6H PRN NAUSEA-FOR RESCUE AFTER 15 MIN ASSESSMENT/PLAN: 88 year old female with history of HTN, HLD, Pancreatitis, s/p Cholecystectomy, presented with epigastric pain radiating to back, with nausea/vomiting. No fever /chills. 1. Choledocholithiasis with Biliary Obstruction History of CBD stone s/p ERCP and Stent, with stent removal at [facility] 2016 US Abdomen - intrahepatic and extrahepatic dilatation of CBD MRCP - Impacted CBD Stone. Treated prophylacticaly with Zosyn - no clear evidence of Acute Cholangitis. s/p ERCP - 3 stones in CBD, 2 removed, third unable to remove, prior sphincterotomy, stent placed Arrangements being made by GI for transfer to [facility] for ultrasonic lithotripsy by Dr. Rossi. LFTs improving - TBil 3.9/AST 347/ALT 389 Continue Zosyn. Currently Afebrile, Hemodynamically Stable. Pain management with Morphine, Zofran for Nausea. 2. HTN - normally on Norvasc, Toprol XL. 3. Hypokalemia - resolved s/p repletion. Will monitor. 4. CKD 3 - Stable. GI Px - Protonix Visit type - Emergency Visit Emergency Visit: Yes ED Registration Date: 12/01/18 Care time: The patient presented to the Emergency Department on the above date and was hospitalized for further evaluation of their emergent condition. - New Patient This patient is new to me today: Yes Date on this admission: 12/03/18 - Critical Care Critical Care patient: No - Discharge Referral Referred to [facility] Med P.C.: No
[2018-12-04] MEDS ORDERED: DEXTROSE 5%-WATER - 50 ML IVPB ONE ×4 (04:55→20:32)
[2018-12-04] MEDS ORDERED: PIPERACILLIN/TAZOBACTAM 2.25 GM VIAL IVPB ONE ×4 (04:55→20:31)
[2018-12-04] MEDS: PIPERACILLIN/TAZOB 2.25 GM 2.25 GM in DEXTROSE 5%-WATER - 50 ML IVPB SCH ×4 (04:57→20:43)
[2018-12-04 07:29] LABS: BASO % 0.2 % (0-2.0); EOS % 0.8 % (0-4.5); HEMATOCRIT 31.4 % (32.4-45.2); LYMPH % 3.4 % (8-40); MCH 30.3 pg (25.7-33.7); MEAN CELL VOLUME 86.8 fl (80-96); MEAN PLT VOLUME 8.9 fl (7.5-11.1); MONO % 3.9 % (3.8-10.2); NEUT % 91.7 % (42.8-82.8); PLATELET COUNT 141 K/MM3 (134-434); RBC 3.62 M/mm3 (3.60-5.2); RDW 14.6 % (11.6-15.6); WHITE BLOOD COUNT 9.8 K/mm3 (4.0-10.0)
[2018-12-04 08:00] LABS: INR 1.02 (0.83-1.09)
[2018-12-04 08:24] LABS: ALBUMIN 2.2 g/dl (3.4-5.0); ALK PHOS 175 U/L (45-117); AMYLASE 82 U/L (25-115); ANION GAP 10 MMOL/L (8-16); BILIRUBIN,DIRECT 1.7 mg/dL (0.0-0.2); BILIRUBIN,TOTAL 2.2 mg/dL (0.2-1); BLOOD UREA NITROGEN 32 mg/dL (7-18); CALCIUM 8.1 mg/dL (8.5-10.1); CHLORIDE 108 mmol/L (98-107); CO2 24 mmol/L (21-32); CREATININE 1.5 mg/dL (0.55-1.3); GLUCOSE,RANDOM 152 mg/dL (74-106); LIPASE 176 U/L (73-393); POTASSIUM 3.6 mmol/L (3.5-5.1); SGOT/AST 158 U/L (15-37); SGPT/ALT 245 U/L (13-61); SODIUM 142 mmol/L (136-145); TOT PROT 5.4 g/dl (6.4-8.2)
[2018-12-04] MEDS: ASPIRIN COATED 81 MG TABLET.EC PO SCH (09:48)
[2018-12-04] MEDS: PANTOPRAZOLE SODIUM 40 MG VIAL IVPUSH SCH (09:49)
[2018-12-04] MEDS: amLODIPine BESYLATE 2.5 MG TABLET (FP) PO SCH (10:08)
[2018-12-04 11:39] LABS: ANISOCYTOSIS 0; HELMET CELLS 0; HOWELL-JOLLY BODIES 0; MACROCYTOSIS 0; OVALOCYTE 0; PLATELET ESTIMATE DECREASED; ROULEAU 0; SICKELED CELLS 0; TARGET CELLS 0; TEAR DROP CELLS 0; TOXIC GRANULATION 0
--- NOTE | 2018-12-04 13:53 | EKG ---
Test Reason : Blood Pressure : / mmHG Vent. Rate : 093 BPM Atrial Rate : 093 BPM P-R Int : 144 ms QRS Dur : 072 ms QT Int : 344 ms P-R-T Axes : 048 031 233 degrees QTc Int : 427 ms POOR DATA QUALITY, INTERPRETATION MAY BE ADVERSELY AFFECTED NORMAL SINUS RHYTHM ABNORMAL ECG WHEN COMPARED WITH ECG OF 11-SEP-2016 08:52, T WAVE INVERSION NOW EVIDENT IN INFERIOR LEADS T WAVE INVERSION NOW EVIDENT IN LATERAL LEADS Confirmed by MD Misbah, Zelalem ([id number]) on 12/04/2018 1:52:56 PM Referred By: Confirmed By:Zelalem Crawley MD
[2018-12-04] MEDS: SODIUM CHLORIDE 1,000 ML IV SCH ×3 (15:08→20:36)
[2018-12-04] MEDS: LACTATED RINGERS SOLUTION 1,000 ML IV SCH (15:09)
--- NOTE | 2018-12-04 16:15 | PN ---
GI Progress Note Subjective: GI NOte: Denies pain. Tolerated liquids. No breathing difficulties. I again explained the ECP findings and need for a repeat ERCP with Dr Rossi at [facility] after discharge. - Objective Vital Signs: Vital Signs Temperature 98.0 F 12/04/18 14:17 Pulse Rate 84 12/04/18 14:17 Respiratory Rate 18 12/04/18 14:17 Blood Pressure 133/77 12/04/18 14:17 O2 Sat by Pulse Oximetry (%) 96 12/04/18 08:16 Laboratory Tests 12/02/18 12/02/18 12/03/18 06:10 06:10 06:00 WBC 15.4 H Total Bilirubin 5.1 H 3.9 H Direct Bilirubin AST 792 H 347 H ALT 653 H 389 H Alkaline Phosphatase 250 H 198 H C-Reactive Protein 12/04/18 12/04/18 05:30 05:30 WBC 9.8 Total Bilirubin 2.2 H Direct Bilirubin 1.7 H AST 158 H ALT 245 H Alkaline Phosphatase 175 H C-Reactive Protein 17.5 H Constitutional: No Distress ...Palpate: Yes: Soft, Other (nontender) Labs: CBC, BMP 12/04/18 05:30 12/04/18 05:30 INR, PTT INR 1.02 (0.83-1.09) 12/04/18 05:30 Assessment/Plan Impression: Day 1 s/p ERCP with sphincterotomy and 2 stones extractions then stenting for a residual large > 2cm stone Blood cultures no growth Plan Advance to solid diet Switch to oral antibiotics If pain and fever free can consider discharge with plan to followup with Dr. Sancho Rossi at [facility] for ultrasonic lithotripsy and large stone extraction Problem List - Problems (1) Cholangitis due to bile duct calculus with obstruction Code(s): K80.31 - CALCULUS OF BILE DUCT W CHOLANGITIS, UNSP, WITH OBSTRUCTION (2) Biliary sepsis Code(s): K83.09 - OTHER CHOLANGITIS (3) Choledocholithiasis Code(s): K80.50 - CALCULUS OF BILE DUCT W/O CHOLANGITIS OR CHOLECYST W/O OBST
--- NOTE | 2018-12-04 16:51 | PN ---
Progress Note (short form) - Note Progress Note: SUBJECTIVE: Feels well post ERCP 12/03/18. No abdominal pain/nausea/vomiting. No fever/chills. OBJECTIVE: Afebrile,Hemodynamicaly Stable. Last Vital Signs Temp Pulse Resp BP Pulse Ox 98.0 F 84 18 133/77 94 L 12/04/18 14:17 12/04/18 14:17 12/04/18 14:17 12/04/18 14:17 12/04/18 10:00 HEENT - Atraumatic, Normocpehalic Heart - S1, S2, SM Lungs - decreased air entry bibasally Abdomen - Mild RUQ tenderness, soft. Bowel Sounds normal. Extremities - Mild edema, no calf tenderness Laboratory Results - last 24 hr 12/01/18 12/01/18 12/04/18 17:48 17:48 05:30 WBC RBC Hgb Hct MCV MCH MCHC RDW Plt Count MPV Absolute Neuts (auto) Neutrophils % Neutrophils % (Manual) Band Neutrophils % Lymphocytes % Lymphocytes % (Manual) Monocytes % Monocytes % (Manual) Eosinophils % Eosinophils % (Manual) Basophils % Basophils % (Manual) Myelocytes % (Man) Promyelocytes % (Man) Blast Cells % (Manual) Nucleated RBC % Metamyelocytes Hypochromia Toxic Granulation Dohle Bodies Platelet Estimate Polychromasia Poikilocytosis Basophilic Stippling Anisocytosis Microcytosis Macrocytosis Spherocytes Sickle Cells Target Cells Tear Drop Cells Ovalocytes Stomatocytes Helmet Cells [place] Bodies [place] Rings Derik Cells Acanthocytes (Spur) Rouleaux Fragmented RBCs Schistocytes PT with INR INR Sodium 142 Potassium 3.6 Chloride 108 H Carbon Dioxide 24 Anion Gap 10 BUN 32 H Creatinine 1.5 H Creat Clearance w eGFR 32.92 Random Glucose 152 H Calcium 8.1 L Total Bilirubin 2.2 H Direct Bilirubin 1.7 H AST 158 H ALT 245 H Alkaline Phosphatase 175 H C-Reactive Protein 17.5 H Total Protein 5.4 L Albumin 2.2 L Total Amylase 82 Lipase 176 YASSINE Screen Negative Hepatitis A IgM Ab Negative Hep Bs Antigen Negative Hep B Core IgM Ab Negative Hepatitis C Antibody <0.1 12/04/18 12/04/18 05:30 05:30 WBC 9.8 RBC 3.62 Hgb 11.0 Hct 31.4 L MCV 86.8 MCH 30.3 MCHC 35.0 RDW 14.6 Plt Count 141 MPV 8.9 Absolute Neuts (auto) 9.0 H Neutrophils % 91.7 H Neutrophils % (Manual) 88.0 H Band Neutrophils % 6.0 Lymphocytes % 3.4 L D Lymphocytes % (Manual) 2.0 L Monocytes % 3.9 D Monocytes % (Manual) 3 L Eosinophils % 0.8 D Eosinophils % (Manual) 0.0 Basophils % 0.2 Basophils % (Manual) 0.0 Myelocytes % (Man) 1 D Promyelocytes % (Man) 0 Blast Cells % (Manual) 0 Nucleated RBC % 0 Metamyelocytes 0 D Hypochromia 0 Toxic Granulation 0 Dohle Bodies 0 Platelet Estimate Decreased Polychromasia 0 Poikilocytosis 0 Basophilic Stippling 0 Anisocytosis 0 Microcytosis 0 Macrocytosis 0 Spherocytes 0 Sickle Cells 0 Target Cells 0 Tear Drop Cells 0 Ovalocytes 0 Stomatocytes 0 Helmet Cells 0 [place] Bodies 0 [place] Rings 0 Derik Cells 0 Acanthocytes (Spur) 0 Rouleaux 0 Fragmented RBCs 0 Schistocytes 0 PT with INR 12.00 INR 1.02 Sodium Potassium Chloride Carbon Dioxide Anion Gap BUN Creatinine Creat Clearance w eGFR Random Glucose Calcium Total Bilirubin Direct Bilirubin AST ALT Alkaline Phosphatase C-Reactive Protein Total Protein Albumin Total Amylase Lipase YASSINE Screen Hepatitis A IgM Ab Hep Bs Antigen Hep B Core IgM Ab Hepatitis C Antibody Current Medications Generic Name Dose Route Start Last Admin Trade Name Freq PRN Reason Stop Dose Admin Amlodipine Besylate 7.5 mg 12/02/18 10:00 12/04/18 10:08 Norvasc - PO Not Given DAILY BREN Aspirin 81 mg 12/02/18 10:00 12/04/18 09:48 Ecotrin - PO 81 mg DAILY BREN Administration Piperacillin Sod/Tazobactam 50 mls @ 100 mls/hr 12/02/18 15:00 12/04/18 15:08 Sod 2.25 gm/ Dextrose IVPB 100 mls/hr Q6H-IV BREN Administration Protocol Metoprolol Succinate 50 mg 12/02/18 10:00 12/04/18 09:48 Toprol Xl - PO 50 mg DAILY BREN Administration Morphine Sulfate 4 mg 12/01/18 14:12 Morphine Sulfate IVPUSH Q6H PRN PAIN LEVEL 6-10 Ondansetron HCl 4 mg 12/01/18 14:12 Zofran Injection IVPUSH Q6H PRN NAUSEA Ondansetron HCl 4 mg 12/03/18 11:06 Zofran Injection IVPUSH Q6H PRN NAUSEA AND/OR VOMITING Pantoprazole Sodium 40 mg 12/05/18 10:00 Protonix - PO DAILY BREN Promethazine HCl 12.5 mg 12/03/18 11:06 Phenergan Injection - IVPB Q6H PRN NAUSEA-FOR RESCUE AFTER 15 MIN ASSESSMENT/PLAN: 88 year old female with history of HTN, HLD, Pancreatitis, s/p Cholecystectomy, presented with epigastric pain radiating to back, with nausea/vomiting. No fever /chills. 1. Choledocholithiasis with Biliary Obstruction History of CBD stone s/p ERCP and Stent, with stent removal at [facility] 2015 US Abdomen - intrahepatic and extrahepatic dilatation of CBD MRCP - Impacted CBD Stone. Treated prophylacticaly with Zosyn - no clear evidence of Acute Cholangitis. s/p ERCP 12/03/18 - 3 stones in CBD, 2 removed, third unable to remove, sphincterotomy, stent placed for residual large > 2cm stone LFTs improving - TBil 2.2/AST 158/ALT 245 Continue Zosyn. Currently Afebrile, Hemodynamically Stable. Pain management with Morphine, Zofran for Nausea. Advance Diet as per GI Plan as per GI - If pain and fever free can consider discharge with plan to followup with Dr. Sancho Rossi at [facility] for ultrasonic lithotripsy and large stone extraction 2. HTN - normally on Norvasc, Toprol XL. 3. Hypokalemia - resolved s/p repletion. Will monitor. 4. CKD 3 - slight bump in Creat. Gentle hydration overnight. GI Px - Protonix Visit type - Emergency Visit Emergency Visit: Yes ED Registration Date: 12/01/18 Care time: The patient presented to the Emergency Department on the above date and was hospitalized for further evaluation of their emergent condition. - New Patient This patient is new to me today: No - Critical Care Critical Care patient: No - Discharge Referral Referred to [facility] Med P.C.: No
--- NOTE | 2018-12-04 18:33 | PN ---
Progress Note (short form) - Note Progress Note: s/p ercp first regular meal today no abdominal pain Vital Signs Period Temp Pulse Resp BP Sys/Gudino Pulse Ox Last 24 Hr 97.6 F-98.0 F 76-89 18-21 116-140/53-77 94-96 cor-rrr lungs clear abd soft,nt ext no edema CBC, BMP 12/04/18 05:30 12/04/18 05:30 Microbiology 12/01/18 19:30 Blood - Peripheral Venous Blood Culture - Preliminary NO GROWTH OBTAINED AFTER 48 HOURS, INCUBATION TO CONTINUE FOR 3 DAYS. 12/01/18 19:30 Blood - Peripheral Venous Blood Culture - Preliminary NO GROWTH OBTAINED AFTER 48 HOURS, INCUBATION TO CONTINUE FOR 3 DAYS. 12/01/18 23:40 Urine - Urine Clean Catch Urine Culture - Final Contaminated: Please Repeat a/p s/p ERCP doing well continue zosyn overnight if tolerating food well can switch to po ceftin 500 bid and flagyl 500 tid for 7 days for f/u with GI at [facility] Problem List - Problems (1) Biliary sepsis Code(s): K83.09 - OTHER CHOLANGITIS (2) Abnormal LFTs Code(s): R94.5 - ABNORMAL RESULTS OF LIVER FUNCTION STUDIES (3) Common bile duct dilatation Code(s): K83.8 - OTHER SPECIFIED DISEASES OF BILIARY TRACT (4) CKD (chronic kidney disease) Code(s): N18.9 - CHRONIC KIDNEY DISEASE, UNSPECIFIED
[2018-12-05] MEDS ORDERED: PIPERACILLIN/TAZOBACTAM 2.25 GM VIAL IVPB ONE ×4 (02:38→20:41)
[2018-12-05] MEDS ORDERED: DEXTROSE 5%-WATER - 50 ML IVPB ONE ×4 (02:38→20:42)
[2018-12-05] MEDS: PIPERACILLIN/TAZOB 2.25 GM 2.25 GM in DEXTROSE 5%-WATER - 50 ML IVPB SCH ×4 (02:45→21:13)
[2018-12-05 07:25] LABS: BASO % 0.1 % (0-2.0); EOS % 0.1 % (0-4.5); HEMATOCRIT 32.3 % (32.4-45.2); HEMOGLOBIN 11.1 GM/dL (10.7-15.3); LYMPH % 5.9 % (8-40); MCH 29.7 pg (25.7-33.7); MCHC 34.3 g/dl (32.0-36.0); MEAN CELL VOLUME 86.5 fl (80-96); MONO % 6.7 % (3.8-10.2); NEUT % 87.2 % (42.8-82.8); PLATELET COUNT 137 K/MM3 (134-434); RBC 3.74 M/mm3 (3.60-5.2); WHITE BLOOD COUNT 9.2 K/mm3 (4.0-10.0)
[2018-12-05 08:20] LABS: ALBUMIN 2.1 g/dl (3.4-5.0); ALK PHOS 275 U/L (45-117); ANION GAP 8 MMOL/L (8-16); BILIRUBIN,TOTAL 1.5 mg/dL (0.2-1); BLOOD UREA NITROGEN 29 mg/dL (7-18); CALCIUM 7.7 mg/dL (8.5-10.1); CHLORIDE 107 mmol/L (98-107); CO2 25 mmol/L (21-32); CREATININE 1.2 mg/dL (0.55-1.3); GLUCOSE,RANDOM 102 mg/dL (74-106); POTASSIUM 3.2 mmol/L (3.5-5.1); SGOT/AST 88 U/L (15-37); SGPT/ALT 177 U/L (13-61); SODIUM 140 mmol/L (136-145); TOT PROT 5.2 g/dl (6.4-8.2)
[2018-12-05] MEDS ORDERED: POTASSIUM CHLORIDE ORAL LIQUID 20 MEQ/15 ML PO ONE (10:30)
[2018-12-05] MEDS ORDERED: PT OWN MED DRAWER 7, Y5N ONE (10:42)
[2018-12-05] MEDS: amLODIPine BESYLATE 2.5 MG TABLET (FP) PO SCH (10:45)
[2018-12-05] MEDS: PANTOPRAZOLE 40 MG TABLET (FP) PO SCH (10:45)
[2018-12-05] MEDS: ASPIRIN COATED 81 MG TABLET.EC PO SCH (10:45)
--- NOTE | 2018-12-05 10:52 | DS ---
Physical Examination Vital Signs: Vital Signs Temperature 36.6 C 12/05/18 06:12 Pulse Rate 77 12/05/18 06:12 Respiratory Rate 18 12/05/18 06:12 Blood Pressure 150/83 12/05/18 06:12 O2 Sat by Pulse Oximetry (%) 94 L 12/04/18 10:00 Constitutional: Yes: Well Nourished, No Distress, Calm Cardiovascular: Yes: Regular Rate and Rhythm. No: Gallop, Murmur, Rub Respiratory: Yes: Regular, CTA Bilaterally. No: Rales, Rhonchi, Wheezes Gastrointestinal: Yes: Normal Bowel Sounds, Soft. No: Distention, Tenderness Extremities: Yes: WNL Edema: No Labs: CBC, BMP 12/05/18 06:00 12/05/18 06:00 Discharge Summary Reason For Visit: DILATED BILE DUCT Current Active Problems Abnormal LFTs (Acute) Biliary sepsis (Acute) CKD (chronic kidney disease) (Acute) Cholangitis due to bile duct calculus with obstruction (Acute) Choledocholithiasis (Acute) Common bile duct dilatation (Acute) HTN (hypertension) (Acute) Hypercholesteremia (Acute) Hypokalemia (Acute) Hospital Course: 1. Choledocholithiasis with Biliary Obstruction: Ms Han is a very pleasant 88 year old female who comes in and found to have an impacted CBD stone. She presented with abdominal pain and had an ultrasound of the abdomen and an MRCP which found this. She was seen by GI and underwent ERCP with 2 stones extracted. However a residual large stone was unable to be extracted. She had stent and sphincterotomy and was started on a diet. She tolerated this well, she is safe to follow up with Dr Sancho Rossi at [facility] for ultrasonic lithotripsy and large stone extraction. Patient is aware of this. She was also on zosyn, she will be discharge on ceftin and flagyl for 7 days per ID. 2. HTN: can continue norvasc and toprol cl 3. Hypokalemia: replaced 4. CKD 3: stable 37 minutes spent in preparation of this discharge Condition: Stable - Instructions Diet, Activity, Other Instructions: soft diet. resume previous activity. Follow up with Dr Rossi at [facility] for ultrasound lithotripsy and large stone extraction. Referrals: Shawn Caldwell MD [Primary Care Provider] - Disposition: HOME - Home Medications Comprehensive Discharge Medication List: Ambulatory Orders Amlodipine Besylate [Norvasc -] 7.5 mg PO DAILY 08/29/16 Aspirin [Ecotrin] 81 mg PO DAILY 08/29/16 Metoprolol Succinate [Toprol XL -] 50 mg PO DAILY 08/30/16 Atorvastatin Ca [Lipitor] 80 mg PO HS 06/12/17 Ubidecarenone/Vitamin E [Co Q-10 50 mg Softgel] 1 tab PO DAILY 06/12/17 Cefuroxime Axetil [Ceftin -] 500 mg PO Q12H #14 tablet 12/05/18 Pantoprazole Sodium [Protonix -] 40 mg PO DAILY #30 tablet.ec 12/05/18 metroNIDAZOLE [Flagyl -] 500 mg PO TID #21 tablet 12/05/18
[2018-12-05 10:56] LABS: ANISOCYTOSIS 0; HELMET CELLS 0; HOWELL-JOLLY BODIES 0; MACROCYTOSIS 0; OVALOCYTE 0; PLATELET ESTIMATE DECREASED; ROULEAU 0; SICKELED CELLS 0; TARGET CELLS 0; TEAR DROP CELLS 0; TOXIC GRANULATION 0
--- NOTE | 2018-12-05 13:01 | PN ---
GI Progress Note Subjective: GI NOte: Pain free and eating - Objective Vital Signs: Vital Signs Temperature 98 F 12/05/18 06:12 Pulse Rate 77 12/05/18 06:12 Respiratory Rate 18 12/05/18 09:00 Blood Pressure 150/83 12/05/18 06:12 O2 Sat by Pulse Oximetry (%) 92 L 12/05/18 09:00 Laboratory Tests 12/03/18 12/04/18 12/05/18 06:00 05:30 06:00 Total Bilirubin 3.9 H 2.2 H 1.5 H Direct Bilirubin 1.7 H 1.0 H AST 158 H 88 H ALT 245 H 177 H Alkaline Phosphatase 198 H 175 H 275 H Constitutional: Calm ...Auscultate: Yes: Normoactive Bowel Sounds ...Palpate: Yes: Soft, Other (nontender) Labs: CBC, BMP 12/05/18 06:00 12/05/18 06:00 INR, PTT INR 1.02 (0.83-1.09) 12/04/18 05:30 Assessment/Plan Impression: Day 2 s/p ERCP with sphincterotomy and 2 stones extractions then stenting for a residual large > 2cm stone Blood cultures no growth Plan Oral antibiotics No objections to discharge. Gave her nephew the phone # for Dr. Sancho Rossi at [facility] for ultrasonic lithotripsy and large stone extraction Problem List - Problems (1) Cholangitis due to bile duct calculus with obstruction Code(s): K80.31 - CALCULUS OF BILE DUCT W CHOLANGITIS, UNSP, WITH OBSTRUCTION (2) Biliary sepsis Code(s): K83.09 - OTHER CHOLANGITIS (3) Choledocholithiasis Code(s): K80.50 - CALCULUS OF BILE DUCT W/O CHOLANGITIS OR CHOLECYST W/O OBST
[2018-12-05] MEDS: ALBUTEROL SO4 2.5/IPRATROPIUM 0.5 INH SOL 3 ML VIAL.NEB. NEB SCH (20:55)
[2018-12-06] MEDS ORDERED: PIPERACILLIN/TAZOBACTAM 2.25 GM VIAL IVPB ONE ×4 (01:50→21:12)
[2018-12-06] MEDS ORDERED: DEXTROSE 5%-WATER - 50 ML IVPB ONE ×4 (01:50→21:12)
[2018-12-06] MEDS: PIPERACILLIN/TAZOB 2.25 GM 2.25 GM in DEXTROSE 5%-WATER - 50 ML IVPB SCH ×4 (02:14→22:47)
[2018-12-06] MEDS: ALBUTEROL SO4 2.5/IPRATROPIUM 0.5 INH SOL 3 ML VIAL.NEB. NEB SCH ×3 (07:50→20:46)
[2018-12-06 08:12] LABS: ANION GAP 9 MMOL/L (8-16); BLOOD UREA NITROGEN 20 mg/dL (7-18); CALCIUM 7.4 mg/dL (8.5-10.1); CHLORIDE 102 mmol/L (98-107); CO2 27 mmol/L (21-32); CREATININE 1.2 mg/dL (0.55-1.3); GLUCOSE,RANDOM 93 mg/dL (74-106); MAGNESIUM 1.3 mg/dL (1.8-2.4); PHOSPHOROUS 1.6 mg/dL (2.5-4.9); POTASSIUM 3.4 mmol/L (3.5-5.1); SODIUM 139 mmol/L (136-145)
[2018-12-06 08:13] LABS: BASO % 0.1 % (0-2.0); EOS % 0.5 % (0-4.5); HEMOGLOBIN 12.5 GM/dL (10.7-15.3); LYMPH % 8.3 % (8-40); MCH 29.3 pg (25.7-33.7); MCHC 33.7 g/dl (32.0-36.0); MEAN CELL VOLUME 86.8 fl (80-96); MEAN PLT VOLUME 9.2 fl (7.5-11.1); MONO % 5.7 % (3.8-10.2); NEUT % 85.4 % (42.8-82.8); PLATELET COUNT 114 K/MM3 (134-434); RBC 4.27 M/mm3 (3.60-5.2); RDW 14.7 % (11.6-15.6); WHITE BLOOD COUNT 7.5 K/mm3 (4.0-10.0)
[2018-12-06] MEDS ORDERED: MAGNESIUM SULF 50% (8.12 MEQ/2 ML-1 GM VIAL) IVPB ONE (09:00)
[2018-12-06] MEDS ORDERED: POTASSIUM CHLORIDE TABS 20 MEQ TABLET.ER (FP) PO ONE (09:00)
[2018-12-06] MEDS ORDERED: POTASSIUM PHOSPHATE 16 MM in SODIUM CHLORIDE 250 ML IVPB ONE (09:15)
--- NOTE | 2018-12-06 09:28 | PN ---
Progress Note, Physician Chief Complaint: Ms Han is without complaint today. Denies chest pain, shortness of breath, nausea/vomiting. Tolerating diet. - Current Medication List Current Medications: Active Medications Albuterol/Ipratropium (Duoneb -) 1 amp NEB RTID [facility] Last Admin: 12/06/18 07:50 Dose: 1 amp Amlodipine Besylate (Norvasc -) 7.5 mg PO DAILY [facility] Last Admin: 12/05/18 10:45 Dose: 7.5 mg Aspirin (Ecotrin -) 81 mg PO DAILY [facility] Last Admin: 12/05/18 10:45 Dose: 81 mg Piperacillin Sod/Tazobactam (Sod 2.25 gm/ Dextrose) 50 mls @ 100 mls/hr IVPB Q6H-IV BREN; Protocol Last Admin: 12/06/18 02:14 Dose: 100 mls/hr Sodium Chloride (Normal Saline -) 1,000 mls @ 83 mls/hr IV ASDIR [facility] Last Admin: 12/04/18 20:36 Dose: 83 mls/hr Potassium Phosphate 16 mm/ (Sodium Chloride) 255.3333 mls @ 63.83 mls/hr IVPB ONCE ONE Stop: 12/06/18 13:15 Metoprolol Succinate (Toprol Xl -) 50 mg PO DAILY [facility] Last Admin: 12/05/18 10:45 Dose: 50 mg Morphine Sulfate (Morphine Sulfate) 4 mg IVPUSH Q6H PRN PRN Reason: PAIN LEVEL 6-10 Ondansetron HCl (Zofran Injection) 4 mg IVPUSH Q6H PRN PRN Reason: NAUSEA Ondansetron HCl (Zofran Injection) 4 mg IVPUSH Q6H PRN PRN Reason: NAUSEA AND/OR VOMITING Pantoprazole Sodium (Protonix -) 40 mg PO DAILY [facility] Last Admin: 12/05/18 10:45 Dose: 40 mg Potassium Phos/Sodium Phos (Phos-Nak Packet -) 1 packet PO TID [facility] Promethazine HCl (Phenergan Injection -) 12.5 mg IVPB Q6H PRN PRN Reason: NAUSEA-FOR RESCUE AFTER 15 MIN - Objective Vital Signs: Vital Signs Temperature 36.7 C 12/06/18 06:00 Pulse Rate 80 12/06/18 06:00 Respiratory Rate 18 12/06/18 06:00 Blood Pressure 150/77 03/07/19 06:00 O2 Sat by Pulse Oximetry (%) 92 L 12/05/18 15:18 Constitutional: Yes: Well Nourished, No Distress, Calm Cardiovascular: Yes: Tachycardia. No: Gallop, Murmur, Rub Respiratory: Yes: Regular, On Nasal O2, Rales (minimal, bilateral). No: Rhonchi , Wheezes Gastrointestinal: Yes: Normal Bowel Sounds, Soft. No: Distention, Tenderness Extremities: Yes: WNL Edema: No Labs: CBC, BMP 12/06/18 06:20 12/06/18 06:20 INR, PTT INR 1.02 (0.83-1.09) 12/04/18 05:30 Problem List - Problems (1) Acute respiratory failure with hypoxia Assessment/Plan: -unclear cause, first noted yesterday -chest x-ray reviewed -continue I/S and duonebs -Wells score is PE unlikely, but will consult pulmonary to evaluate as well -check ECHO Code(s): J96.01 - ACUTE RESPIRATORY FAILURE WITH HYPOXIA (2) Choledocholithiasis Assessment/Plan: -doing well -safe for discharge from this standpoint with outpatient follow up Code(s): K80.50 - CALCULUS OF BILE DUCT W/O CHOLANGITIS OR CHOLECYST W/O OBST (3) HTN (hypertension) Assessment/Plan: -continue toprol xl and amlodipine -may need to adjust for better control Code(s): I10 - ESSENTIAL (PRIMARY) HYPERTENSION (4) Hypomagnesemia Assessment/Plan: -replace today Code(s): E83.42 - HYPOMAGNESEMIA (5) Hypophosphatemia Assessment/Plan: -replace today -recheck tomorrow Code(s): E83.39 - OTHER DISORDERS OF PHOSPHORUS METABOLISM (6) CKD (chronic kidney disease) Assessment/Plan: -at baseline Code(s): N18.9 - CHRONIC KIDNEY DISEASE, UNSPECIFIED (7) Hypokalemia Assessment/Plan: -replace today Code(s): E87.6 - HYPOKALEMIA (8) CHF (congestive heart failure) Assessment/Plan: -last ECHO in hospital in 2015, showing diastolic dysfunction -will repeat ECHO since now with hypoxia -appears euvolemic but is positive on I/Os -may need lasix Code(s): I50.9 - HEART FAILURE, UNSPECIFIED Qualifiers: Heart failure type: diastolic Heart failure chronicity: chronic Qualified Code(s): I50.32 - Chronic diastolic (congestive) heart failure
[2018-12-06] MEDS: PANTOPRAZOLE 40 MG TABLET (FP) PO SCH (10:04)
[2018-12-06] MEDS: ASPIRIN COATED 81 MG TABLET.EC PO SCH (10:04)
[2018-12-06] MEDS: SODIUM CHLORIDE 1,000 ML IV SCH (10:17)
--- NOTE | 2018-12-06 10:44 | CON.PULM ---
Consult Consult Specialty:: PULM/CCM Referred by:: ANATOLY Reason for Consultation:: Hypoxemia - History of Present Illness Chief Complaint: Abdominal discomfort History of Present Illness: 88 F, minimal smoking history in her 20's, HTN, Dyslipedemia, Cholycystectomy and pancreatitis. Admitted via the ER due to epigastric pain that radiates to back. Associated symptoms include nausea and recurrent vomiting of bile and ingested food. Abdominal ultrasound revealed intrahepatic and extrahepatic dilatation of CBD. Had previous MRCP and ERCP. POD #3 ERCP with sphincterotomy and 2 stones extractions then stenting for a residual large > 2cm stone. Called for hypoxemia to 92% on RA at rest. Patient currently on 2 L NC O2 and saturation 98%. She denies CP, SOB, significant cough, hemoptysis, or CRUM. No personal or family history of VTE. (Of note her NLR is very low: 1.3 to 2.3) . Modified Wells Score does not predict a significant risk for VTE. CXR: Bibasilar atelectasis and associated pleural effusions. - History Source History Provided By: Patient Limitations to Obtaining History: No Limitations - Past Medical History Cardio/Vascular: Yes: Hyperlipdemia Pulmonary: No: Asthma, Bronchitis, Cancer, COPD, O2 Dependent, Pneumonia, Previously Intubated, Pulmonary Embolus, Pulmonary Fibrosis, Sleep Apnea Gastrointestinal: Yes: Pancreatitis Hepatobiliary: Yes: Choledocholithiasis ...: No - Past Surgical History Past Surgical History: Yes: Cholecystectomy - Alcohol/Substance Use Hx Alcohol Use: No - Smoking History Smoking history: Former smoker Have you smoked in the past 12 months: No Home Medications - Allergies Allergies/Adverse Reactions: Allergies Allergy/AdvReac Type Severity Reaction Status Date / Time No Known Allergies Allergy Verified 12/01/18 07:48 - Home Medications Home Medications: Ambulatory Orders Amlodipine Besylate [Norvasc -] 7.5 mg PO DAILY 08/29/16 Aspirin [Ecotrin] 81 mg PO DAILY 08/29/16 Metoprolol Succinate [Toprol XL -] 50 mg PO DAILY 08/30/16 Atorvastatin Ca [Lipitor] 80 mg PO HS 06/12/17 Ubidecarenone/Vitamin E [Co Q-10 50 mg Softgel] 1 tab PO DAILY 06/12/17 Cefuroxime Axetil [Ceftin -] 500 mg PO Q12H #14 tablet 12/05/18 Pantoprazole Sodium [Protonix -] 40 mg PO DAILY #30 tablet.ec 12/05/18 metroNIDAZOLE [Flagyl -] 500 mg PO TID #21 tablet 12/05/18 Review of Systems - Review of Systems Constitutional: denies: Chills, Fever, Malaise, Night Sweats, Unintentional Wgt. Loss, Weakness Eyes: reports: No Symptoms HENT: reports: No Symptoms Neck: reports: No Symptoms Cardiovascular: reports: Edema. denies: Chest Pain, Palpitations, Shortness of Breath Respiratory: denies: Cough, Hemoptysis, Orthopnea, PND, Snoring, SOB, SOB on Exertion, Wheezing Gastrointestinal: reports: Bloating, Nausea, Vomiting Genitourinary: reports: No Symptoms Breasts: reports: No Symptoms Reported Musculoskeletal: reports: No Symptoms Integumentary: reports: No Symptoms Neurological: reports: No Symptoms Endocrine: reports: No Symptoms Hematology/Lymphatic: reports: No Symptoms Psychiatric: reports: No Symptoms Physical Exam Vital Sings: Vital Signs Temperature 98.0 F 12/06/18 06:00 Pulse Rate 80 12/06/18 06:00 Respiratory Rate 18 12/06/18 06:00 Blood Pressure 150/77 12/06/18 06:00 O2 Sat by Pulse Oximetry (%) 92 L 12/05/18 15:18 Constitutional: Yes: No Distress, Calm Eyes: Yes: Conjunctiva Clear, EOM Intact HENT: Yes: Atraumatic, Normocephalic Neck: Yes: Supple, Trachea Midline Cardiovascular: Yes: Regular Rate and Rhythm Respiratory: Yes: Cough, Diminished, On Nasal O2, Rales, Rhonchi. No: Accessory Muscle Use, SOB, SOB on Exertion, Stridor, Tachypnea, Wheezes ...Inspection: Yes: WNL ...Clubbing: No Gastrointestinal: Yes: Normal Bowel Sounds, Soft, Abdomen, Obese Renal/: Yes: WNL Musculoskeletal: Yes: WNL Extremities: Yes: WNL Edema: Yes Peripheral Pulses WNL: Yes Integumentary: Yes: WNL Neurological: Yes: WNL, Alert, Oriented ...Motor Strength: WNL Psychiatric: Yes: WNL, Alert, Oriented Labs: CBC, BMP 12/06/18 06:20 12/06/18 06:20 Imaging - Results Chest X-ray: Report Reviewed, Image Reviewed Problem List - Problems (1) Atelectasis of both lungs Code(s): J98.11 - ATELECTASIS (2) Pleural effusion Code(s): J90 - PLEURAL EFFUSION, NOT ELSEWHERE CLASSIFIED (3) Cholangitis due to bile duct calculus with obstruction Code(s): K80.31 - CALCULUS OF BILE DUCT W CHOLANGITIS, UNSP, WITH OBSTRUCTION (4) Choledocholithiasis Code(s): K80.50 - CALCULUS OF BILE DUCT W/O CHOLANGITIS OR CHOLECYST W/O OBST (5) Common bile duct dilatation Code(s): K83.8 - OTHER SPECIFIED DISEASES OF BILIARY TRACT (6) HTN (hypertension) Code(s): I10 - ESSENTIAL (PRIMARY) HYPERTENSION (7) Biliary tract obstruction Code(s): K83.1 - OBSTRUCTION OF BILE DUCT (8) Edema Code(s): R60.9 - EDEMA, UNSPECIFIED (9) Pancreatitis due to biliary obstruction Code(s): K85.9 - ACUTE PANCREATITIS, UNSPECIFIED * DO NOT USE * Assessment/Plan Do not suspect PE. Hypoxemia due to V/Q mismatch due to bilateral atelectasis and pleural effusions Supplemental O2 as needed Do not suspect further VTE workup is required at this point. Stop IVF Encourage Incentive Spirometry PO as tolerated VTE prophylaxis OOB to chair and ambulate Suspect that with above intervention hypoxemia will resolve and there would be no Pulmonary contraindication for D/C Will follow Thank you. Dr Sumner
[2018-12-06 11:11] LABS: ANISOCYTOSIS 0; HELMET CELLS 0; HOWELL-JOLLY BODIES 0; MACROCYTOSIS 0; OVALOCYTE 0; PLATELET ESTIMATE DECREASED; ROULEAU 0; SICKELED CELLS 0; TARGET CELLS 0; TEAR DROP CELLS 0; TOXIC GRANULATION 0
[2018-12-06] MEDS ORDERED: PT OWN MED DRAWER 7, Y5N ONE (11:53)
[2018-12-06] MEDS: amLODIPine BESYLATE 2.5 MG TABLET (FP) PO SCH (11:57)
[2018-12-06] MEDS: NAPH,MB-DB/K PH,MBDB POWDER PACKET PO SCH ×2 (14:22→22:52)
--- NOTE | 2018-12-06 15:30 | ECHO ---
Name: RONAL MAHARAJ Exam:Adult Echocardiogram Study Date: 12/06/2018 10:45 AM Age: 88 yrs Reason For Study: hypoxia Height: 62 in Weight: 147 lb BSA: 1.7 m2 MMode/2D Measurements & Calculations IVSd: 0.88 cm Ao root diam: 3.5 cm LVIDd: 3.9 cm LA dimension: 3.9 cm LVIDs: 2.4 cm ACS: 1.5 cm LVPWd: 0.85 cm IVSs: 1.2 cm LVPWs: 0.94 cm EDV(Teich): 64.0 ml ESV(Teich): 19.8 ml Doppler Measurements & Calculations MV E max shubham: 74.0 cm/sec Ao V2 max: 135.7 cm/sec MV A max shubham: 92.3 cm/sec Ao max P.4 mmHg MV E/A: 0.80 Ao V2 mean: 101.5 cm/sec Ao mean P.6 mmHg Ao V2 VTI: 28.6 cm TR max shubham: 267.9 cm/sec Med Peak E' Shubham: 4.7 cm/sec TR max P.8 mmHg Med E/e': 15.8 Lat Peak E' Shubham: 4.2 cm/sec Lat E/e': 17.7 Procedure A complete two-dimensional transthoracic echocardiogram was performed (2D, M-mode, Doppler and color flow Doppler). Left Ventricle The left ventricular size, thickness and function are normal. The left ventricular ejection fraction is normal. Ejection Fraction = 60-65%. The left ventricular wall motion is normal. Right Ventricle The right ventricle is normal in size and function. Atria Normal left and right atrial size and function. Mitral Valve There is no mitral regurgitation noted. Tricuspid Valve There is trace tricuspid regurgitation. Right ventricular systolic pressure is normal. Aortic Valve No hemodynamically significant valvular aortic stenosis. Trace aortic regurgitation. Pulmonic Valve There is no pulmonic valvular regurgitation. Great Vessels The aortic root is normal size. Pericardium/Pleura There is no pericardial effusion. Interpretation Summary The left ventricular size, thickness and function are normal The right ventricle is normal in size and function. There is trace tricuspid regurgitation. Trace aortic regurgitation. MD Carlos Edmond 12/06/2018 03:29 PM
[2018-12-07] MEDS ORDERED: DEXTROSE 5%-WATER - 50 ML IVPB ONE ×2 (02:52→08:49)
[2018-12-07] MEDS ORDERED: PIPERACILLIN/TAZOBACTAM 2.25 GM VIAL IVPB ONE ×2 (02:52→08:49)
[2018-12-07] MEDS: PIPERACILLIN/TAZOB 2.25 GM 2.25 GM in DEXTROSE 5%-WATER - 50 ML IVPB SCH ×2 (02:58→09:19)
[2018-12-07] MEDS: NAPH,MB-DB/K PH,MBDB POWDER PACKET PO SCH (06:13)
[2018-12-07 07:42] LABS: BASO % 0.1 % (0-2.0); HEMATOCRIT 33.9 % (32.4-45.2); LYMPH % 10.6 % (8-40); MCH 30.3 pg (25.7-33.7); MCHC 35.2 g/dl (32.0-36.0); MEAN PLT VOLUME 9.4 fl (7.5-11.1); MONO % 6.6 % (3.8-10.2); NEUT % 81.7 % (42.8-82.8); PLATELET COUNT 94 K/MM3 (134-434); RBC 3.95 M/mm3 (3.60-5.2); RDW 15.1 % (11.6-15.6); WHITE BLOOD COUNT 9.3 K/mm3 (4.0-10.0)
[2018-12-07 08:02] VITALS: BP 136/67; TEMP 98
[2018-12-07] MEDS: ALBUTEROL SO4 2.5/IPRATROPIUM 0.5 INH SOL 3 ML VIAL.NEB. NEB SCH (08:05)
[2018-12-07 08:24] LABS: ANION GAP 8 MMOL/L (8-16); BLOOD UREA NITROGEN 16 mg/dL (7-18); CALCIUM 7.2 mg/dL (8.5-10.1); CHLORIDE 104 mmol/L (98-107); CO2 27 mmol/L (21-32); CREATININE 1.1 mg/dL (0.55-1.3); GLUCOSE,RANDOM 96 mg/dL (74-106); MAGNESIUM 1.9 mg/dL (1.8-2.4); PHOSPHOROUS 3.1 mg/dL (2.5-4.9); POTASSIUM 4.4 mmol/L (3.5-5.1); SODIUM 139 mmol/L (136-145)
[2018-12-07] MEDS: amLODIPine BESYLATE 2.5 MG TABLET (FP) PO SCH (09:19)
[2018-12-07] MEDS: ASPIRIN COATED 81 MG TABLET.EC PO SCH (09:19)
[2018-12-07] MEDS: PANTOPRAZOLE 40 MG TABLET (FP) PO SCH (09:19)
[2018-12-07 10:15] VITALS: PULSE 90
[2018-12-07 12:50] LABS: ANISOCYTOSIS 2+; MACROCYTOSIS 1+; OVALOCYTE 1+; PLATELET ESTIMATE DECREASED; ROULEAU 1+; TEAR DROP CELLS 1+
== END 2018-12-07 13:20 | disposition home or self-care (01) | DRG 444 ==
LOC: JER 07:33 → JERBED 13:40 → J8W 15:13
PROVIDERS: ADMIT Internal Medicine; ATTEND Internal Medicine
PROC: 0F798DZ Dilation of Common Bile Duct with Intraluminal Device, Via Natural or Artificial Opening Endoscopic (ICD-10-PCS; 2018-12-03)
PROC: 0FC98ZZ Extirpation of Matter from Common Bile Duct, Via Natural or Artificial Opening Endoscopic (ICD-10-PCS; principal; 2018-12-03 10:15)
DX: K80.31 Calculus of bile duct with cholangitis, unspecified, with obstruction (principal); J96.01 Acute respiratory failure with hypoxia; I13.0 Hypertensive heart and chronic kidney disease with heart failure and stage 1 through stage 4 chronic kidney disease, or unspecified chronic kidney disease; I50.32 Chronic diastolic (congestive) heart failure; J98.11 Atelectasis; J90 Pleural effusion, not elsewhere classified; E78.5 Hyperlipidemia, unspecified; E87.6 Hypokalemia; R94.5 Abnormal results of liver function studies; D72.829 Elevated white blood cell count, unspecified; E83.42 Hypomagnesemia; E83.39 Other disorders of phosphorus metabolism; N18.3 Chronic kidney disease, stage 3 (moderate); R60.9 Edema, unspecified
CPT/HCPCS: 36415; 71045-TC-FY; 71046-TC-FY; 74181-TC; 76000-TC-FY; 76705-TC; 80048; 80053; 80074; 81003; 81015; 82150; 82248; 83516; 83605; 83690; 83735; 83880; 84100; 84484; 85025; 85610; 86038; 86140; 87040; 87086; 93005; 93010; 93306-TC; 94002; 94640; 94660; 94760; 94761; 99284-25; J7030

== ENCOUNTER 2019-01-04 19:24 | Inpatient (IN) | payer OTHER, MEDICARE ==
--- NOTE | 2019-01-04 19:45 | PDOC ---
Rapid Medical Evaluation Chief Complaint: Revisit, Lab Variance Medical Evaluation: Allergies Allergy/AdvReac Type Severity Reaction Status Date / Time No Known Allergies Allergy Verified 12/01/18 07:48 01/04/19 19:41 I have performed a brief in-person evaluation of this patient. The patient presents with a chief complaint of: told to come by Dr Caldwell, has LiverEnzymes elevated due to Cholelithiasis Pertinent physical exam findings: well, no swelling or tenderness , abd soft I have ordered the following: HAS Labs in computer from AM The patient will proceed to the ED for further evaluation. Discharge Disposition - Diagnosis Liver enzyme elevation - Referrals - Patient Instructions - Post Discharge Activity
--- NOTE | 2019-01-04 20:30 | PDOC ---
History of Present Illness - General Chief Complaint: Revisit, Lab Variance Stated Complaint: PCP SENT Time Seen by Provider: 01/04/19 20:30 - History of Present Illness Initial Comments: 01/04/19 20:30 Ms. Han is an 88 yo female w/ pmh of HTN, HLD, pancreatitis, cholecystectomy ( distant), 2016 ERCP who presents for evaluation on advice of PCP (Javi). Patient presented to this ER 3/2 for abdominal pain and was found to have bile duct calculus w/ cholangitis, biliary sepsis, and choledocholithiasis. Patient recently had stone removal 2 weeks ago with retrieval of 2 stones and 1 remaining with stent placement. Patient noted by PCP today to have rising liver enzymes and WBC over the last 2 weeks. Recommended to present for CT scan. Patient has no complaints at this time. PCP: Dr. Caldwell The patient denies chest pain, shortness of breath, headache and dizziness. Denies fever, chills, nausea, vomit, diarrhea and constipation. Denies dysuria, frequency, urgency and hematuria. Past History - Past Medical History Allergies/Adverse Reactions: Allergies Allergy/AdvReac Type Severity Reaction Status Date / Time No Known Allergies Allergy Verified 12/01/18 07:48 Home Medications: Ambulatory Orders Amlodipine Besylate [Norvasc -] 7.5 mg PO DAILY 08/29/16 Aspirin [Ecotrin] 81 mg PO DAILY 08/29/16 Metoprolol Succinate [Toprol XL -] 50 mg PO DAILY 08/30/16 Atorvastatin Ca [Lipitor] 80 mg PO HS 06/12/17 Ubidecarenone/Vitamin E [Co Q-10 50 mg Softgel] 1 tab PO DAILY 06/12/17 Cefuroxime Axetil [Ceftin -] 500 mg PO Q12H #14 tablet 12/05/18 Pantoprazole Sodium [Protonix -] 40 mg PO DAILY #30 tablet.ec 12/05/18 metroNIDAZOLE [Flagyl -] 500 mg PO TID #21 tablet 12/05/18 Albuterol 2.5/Ipratropium 0.5 [Duoneb -] 1 amp NEB RTID #30 amp 12/07/18 Nebulizer and Compressor [Easy Air Compressor Nebulizer] 1 each ASDIR #1 each 12/07/18 Anemia: No Asthma: No Cancer: No Cardiac Disorders: No CVA: No COPD: No CHF: No Dementia: No Diabetes: No GI Disorders: Yes (Gallstones) Disorders: No HTN: Yes Hypercholesterolemia: No Liver Disease: No Seizures: No Thyroid Disease: Yes - Surgical History Cholecystectomy: Yes GI Surgery: Yes (Bile duct stent November 2018) - Suicide/Smoking/Psychosocial Hx Smoking History: Former smoker Have you smoked in the past 12 months: No Information on smoking cessation initiated: No Hx Alcohol Use: No Drug/Substance Use Hx: No Substance Use Type: None Hx Substance Use Treatment: No Review of Systems - Review of Systems Comments:: 01/04/19 20:48 GENERAL/CONSTITUTIONAL: No fever or chills. No weakness. HEAD, EYES, EARS, NOSE AND THROAT: No change in vision. No ear pain or discharge. No sore throat. CARDIOVASCULAR: No chest pain or shortness of breath RESPIRATORY: No cough, wheezing, or hemoptysis. GASTROINTESTINAL: No nausea, vomiting, diarrhea or constipation. GENITOURINARY: No dysuria, frequency, or change in urination. MUSCULOSKELETAL: No joint or muscle swelling or pain. No neck or back pain. SKIN: No rash NEUROLOGIC: +No headache, vertigo, loss of consciousness, or change in strength/ sensation. ENDOCRINE: No increased thirst. No abnormal weight change HEMATOLOGIC/LYMPHATIC: No anemia, easy bleeding, or history of blood clots. ALLERGIC/IMMUNOLOGIC: No hives or skin allergy. *Physical Exam - Vital Signs Last Vital Signs Temp Pulse Resp BP Pulse Ox 97.1 F L 84 20 121/57 L 96 01/04/19 19:40 01/04/19 19:40 01/04/19 19:40 01/04/19 19:40 01/04/19 19:40 - Physical Exam Comments: 01/04/19 20:48 GENERAL: Awake, alert, and fully oriented, in no acute distress HEAD: No signs of trauma, normocephalic, atraumatic EYES: PERRLA, EOMI, sclera anicteric, conjunctiva clear ENT: Auricles normal inspection, hearing grossly normal, nares patent, oropharynx clear without exudates. Moist mucosa NECK: Normal ROM, supple, no lymphadenopathy, JVD, or masses LUNGS: No distress, speaks full sentences, clear to auscultation bilaterally HEART: Regular rate and rhythm, normal S1 and S2, no murmurs, rubs or gallops, peripheral pulses normal and equal bilaterally. ABDOMEN: +Diffuse abdominal TTP. Soft, normoactive bowel sounds. No guarding, no rebound. No masses EXTREMITIES: Normal inspection, Normal range of motion, no edema. No clubbing or cyanosis. NEUROLOGICAL: Cranial nerves II through XII grossly intact. Normal speech, normal gait, no focal sensorimotor deficits SKIN: Warm, Dry, normal turgor, no rashes or lesions noted. ED Treatment Course - LABORATORY CBC & Chemistry Diagram: 01/04/19 21:50 01/04/19 21:50 Medical Decision Making - Medical Decision Making 01/04/19 23:36 Ms. Han is an 88 yo female w/ pmh as described who presents for evaluation on PCP direction for increasing WBC and liver enzymes. Patient noted to have additional generalized abdominal TTP concerning for acute process. Patient evaluation started with labs as below as well as CT abdomen/pelvis. As patient Cr elevated patient not able to get IV contrast; abdominal US also ordered for increased visualization. Patient to be admitted as per PCP for further evaluation of presentation. Laboratory Results - last 24 hr 01/04/19 01/04/19 01/04/19 21:50 21:50 21:50 WBC 10.3 H RBC 3.39 L Hgb 9.6 L Hct 29.0 L MCV 85.6 MCH 28.4 MCHC 33.2 RDW 16.0 H Plt Count 424 MPV 7.8 Absolute Neuts (auto) 8.1 H Neutrophils % 78.7 Lymphocytes % 13.2 D Monocytes % 7.4 Eosinophils % 0.3 Basophils % 0.4 D Nucleated RBC % 0 PT with INR 12.30 INR 1.04 PTT (Actin FS) 28.9 Sodium 134 L Potassium 4.3 Chloride 99 Carbon Dioxide 27 Anion Gap 8 BUN 32 H Creatinine 1.8 H Creat Clearance w eGFR 26.68 Random Glucose 102 Lactic Acid Calcium 8.7 Total Bilirubin 0.8 AST 51 H ALT 41 Alkaline Phosphatase 287 H Total Protein 7.1 Albumin 2.4 L Lipase 371 Blood Type Antibody Screen 01/04/19 01/04/19 01/04/19 21:50 21:50 21:50 WBC RBC Hgb Hct MCV MCH MCHC RDW Plt Count MPV Absolute Neuts (auto) Neutrophils % Lymphocytes % Monocytes % Eosinophils % Basophils % Nucleated RBC % PT with INR INR PTT (Actin FS) Sodium Cancelled Potassium Cancelled Chloride Cancelled Carbon Dioxide Cancelled Anion Gap Cancelled BUN Cancelled Creatinine Cancelled Creat Clearance w eGFR Cancelled Random Glucose Cancelled Lactic Acid 1.4 Calcium Cancelled Total Bilirubin AST ALT Alkaline Phosphatase Total Protein Albumin Lipase Blood Type Cancelled Antibody Screen Cancelled *DC/Admit/Observation/Transfer Diagnosis at time of Disposition: Liver enzyme elevation Abdominal pain Qualifiers: Abdominal location: unspecified location Qualified Code(s): R10.9 - Unspecified abdominal pain - Discharge Dispostion Decision to Admit order: Yes - Referrals Referrals: Shawn Caldwell MD [Primary Care Provider] - - Patient Instructions - Post Discharge Activity
--- NOTE | 2019-01-04 20:37 | PDOC ---
Attending Attestation - HPI HPI: 01/04/19 21:40 The patient is a 88 year old female with a significant past medical history of HTN, HLD, pancreatitis, distant cholecystectomy, 2016 ERCP, who presents to the emergency department for an evaluation and CT scan on advice of her PCP, Dr. Caldwell. The patient received a call from Dr. Caldwell today that she has elevated liver enzymes and WBC. The patient recently had stone removal 2 weeks ago, however, one was remaining with the stent placement. The patient was here at [facility] on 12/01/18 for abdominal pain and was found to have bile duct calculus with cholangitis, biliary sepsis, and choledocholithiasis. The patient denies any symptoms or complaints at this time. The patient denies fever, chills, nausea, vomit, diarrhea or constipation. The patient denies dysuria, frequency, urgency or hematuria. Allergies: NKDA Past surgical history: Cholecystectomy and Bile duct stent (November 2018) Social history: Former smoker. No alcohol use. PCP: Dr. Caldwell - Physicial Exam PE: 01/04/19 GENERAL: Awake, alert, and fully oriented, in no acute distress HEAD: No signs of trauma EYES: PERRLA, EOMI, sclera anicteric, conjunctiva clear ENT: Auricles normal inspection, hearing grossly normal, nares patent, oropharynx clear without exudates. Moist mucosa NECK: Normal ROM, supple, no lymphadenopathy, JVD, or masses LUNGS: Breath sounds equal, clear to auscultation bilaterally. No wheezes, and no crackles HEART: Regular rate and rhythm, normal S1 and S2, no murmurs, rubs or gallops ABDOMEN: (+) diffuse abdominal tenderness to palpation. (+) epigastric tenderness. Soft, nontender, normoactive bowel sounds. No guarding, no rebound. No masses. No flank pain. EXTREMITIES: Normal range of motion, no edema. No clubbing or cyanosis. No cords, erythema, or tenderness NEUROLOGICAL: Cranial nerves II through XII grossly intact. Normal speech, normal gait SKIN: Warm, Dry, normal turgor, no rashes or lesions noted. <Amanda Pyle - Last Filed: 01/04/19 21:59> - Resident Resident Name: Rajiv Ray - ED Attending Attestation I have performed the following: I have examined & evaluated the patient, The case was reviewed & discussed with the resident, I agree w/resident's findings & plan - Medical Decision Making 01/04/19 22:31 Pt is afebrile; her WBC went down from 15 to 10 currently, however it may be dilutional as her Hb/HCT are also down. We are awaiting CMP and Lipase. 01/04/19 23:09 I spoke to PMD Shawn Caldwell, who states that pt has been doing poorly at home for the last week and that he is concerned for her safety, as she has weakness and decreased intake and physical movement in the home. Pt's WBC and LFTs have been trending upward. Todays labs in the ER are similar to the ones from earlier in the day. Dr. Caldwell is requesting GI consult, as well as requesting that pt be transferred directly to. 01/05/19 00:40 Pt has a choledocholithiasis on sonogram biliary stent is in the duodenum. Fatty infiltration on the liver vs a mass on the liver - meade area; please compare with old CT scans. Left adnexal cyst; needs real estate utilization officer to eval 01/05/19 01:56 EXAM: CT abdomen and pelvis without contrast HISTORY: Diffuse abdominal pain COMPARISON: No prior scans have been transmitted for comparison. FINDINGS: A biliary stent is in place. However, it looks like only a small portion of it is in the common bile duct. Most of it is in the duodenum. There is a 1.4 cm density in the distal common bile duct (near the proximal loop of the stent) which looks like it is a stone. The biliary tree is dilated proximal to this, and likely obstructed. There is also pneumobilia. There is a vague low-density focus in the right lobe of the liver measuring 10.6 cm x 4.6 cm. Difficult to determine if this is an mass or a large area of fatty infiltration. Contrast-enhanced CT would be necessary to evaluate this. Lobulated but otherwise normal spleen. No pancreatic inflammation. Cannot evaluate for pancreatic masses without contrast enhancement CT. Normal adrenal glands. Bilateral renal cysts. One of the left renal cysts is dense and should be followed up to make sure no neoplasm. No urinary tract obstruction. 7.2 cm left adnexal cyst. Adnexal cysts, especially cysts this large should be evaluated in postmenopausal patients to rule out neoplasm. No bowel obstruction or inflammation. Left colon and sigmoid diverticulosis. No diverticulitis or colitis. Normal appendix. No free intraperitoneal air or free fluid. Right pleural effusion. Impression: Most of the biliary stent appears to be in the duodenum with only the proximal loop in the distal common bile duct. Dense structure possibly stone in the distal common bile duct possibly causing obstruction. Dilated biliary tree and pneumobilia. Large low density focus right lobe liver. Needs further evaluation to rule out mass. Bilateral renal cysts one is dense. Recommend follow-up. Large left adnexal cyst. Recommend follow-up. Right pleural effusion. <Kim Madison - Last Filed: 01/05/19 02:35> Heart Score/ECG Review - ECG Intrepretation Rhythm: Regular Rhythm - [place]: Normal - P and MT Prominent R with upright T in V1 (true posterior [place]): No Delta Wave(s) Present: No WPW: No - QRS Poor R Wave Progression: No Q Wave Present: No - ST and T Early Repolarization: No Non Specific ST-T Wave changes: No Flattened T Waves: No Prolonged Q-T Interval: No - ECG Impressions Normal ECG: Yes Non-specific ST Elevation: No Ischemic Changes: No Bradycardia: No Torsades santos Pointes: No WPW: No <Kim Madison - Last Filed: 01/05/19 02:35> Attestations - Attestations 01/04/19 21:43 Documentation prepared by Amanda Pyle, acting as medical grade shoemaker for Kim Madison MD <Amanda Pyle - Last Filed: 01/04/19 21:59>
[2019-01-04 22:05] LABS: BASO % 0.4 % (0-2.0); EOS % 0.3 % (0-4.5); HEMOGLOBIN 9.6 GM/dL (10.7-15.3); LYMPH % 13.2 % (8-40); MCH 28.4 pg (25.7-33.7); MCHC 33.2 g/dl (32.0-36.0); MEAN CELL VOLUME 85.6 fl (80-96); MEAN PLT VOLUME 7.8 fl (7.5-11.1); MONO % 7.4 % (3.8-10.2); NEUT % 78.7 % (42.8-82.8); PLATELET COUNT 424 K/MM3 (134-434); RBC 3.39 M/mm3 (3.60-5.2); WHITE BLOOD COUNT 10.3 K/mm3 (4.0-10.0)
[2019-01-04 22:19] LABS: INR 1.04 (0.83-1.09); PROTHROMBIN TIME (PATIENT) 12.3 SEC (9.7-13.0)
[2019-01-04 22:22] LABS: ACTIVATED PTT 28.9 SECONDS (25.2-36.5)
[2019-01-04 22:37] LABS: ALBUMIN 2.4 g/dl (3.4-5.0); ALK PHOS 287 U/L (45-117); ANION GAP 8 MMOL/L (8-16); BILIRUBIN,TOTAL 0.8 mg/dL (0.2-1); BLOOD UREA NITROGEN 32 mg/dL (7-18); CALCIUM 8.7 mg/dL (8.5-10.1); CHLORIDE 99 mmol/L (98-107); CO2 27 mmol/L (21-32); CREATININE 1.8 mg/dL (0.55-1.3); GLUCOSE,RANDOM 102 mg/dL (74-106); LIPASE 371 U/L (73-393); POTASSIUM 4.3 mmol/L (3.5-5.1); SGOT/AST 51 U/L (15-37); SGPT/ALT 41 U/L (13-61); SODIUM 134 mmol/L (136-145); TOT PROT 7.1 g/dl (6.4-8.2)
[2019-01-04] MEDS ORDERED: SODIUM CHLORIDE 0.9% 500 ML INFUS.BAG IV ONE (22:52)
--- NOTE | 2019-01-05 00:28 | HP ---
CHIEF COMPLAINT: elevated LFTs, WBC ct x 2 weeks PCP: Dr. Caldwell HISTORY OF PRESENT ILLNESS: 88 y/o F with PMH HTN, HLD, pancreatitis, cholecystectomy (40-50 yrs ago), 2016 ERCP, who was sent in by PMD, Dr. Caldwell d/t elevated LFTs, WBC ct x 2 weeks. As per ED staff, pt has had a steady rise in LFT's, as well as a WBC count up to 15 recently, thus was sent in for evaluation. During this time, pt has been asymptomatic. Denies GROSS, fever, chills, SOB, chest pain or pressure, N/V/D, or changes in urinary function. Of note, in November 2018, pt was tx for bile duct calculi, cholangitis, choledocholithiasis. At the time, pt was seen by GI (Dr. Bennett) and had two stones removed via ERCP, and underwent sphincterotomy and had a stent placement d/t a large, retained stone that was 2cm. Pt was scheduled to f/u with Dr. Sancho Rossi at [facility] for lithotripsy, and has an appointment on 01/09/19. ER course was notable for: (1) NS 500 ccx 1 (2) (3) Recent Travel: denies PAST MEDICAL HISTORY: as above PAST SURGICAL HISTORY: cholecystectomy (40-50 yrs ago), sphincterotomy and stent 11/2018 Social History: used to work for a [employer] Smoking: quit "many years ago" Alcohol: social Drugs: denies Family History: denies Allergies No Known Allergies Allergy (Verified 12/01/18 07:48) HOME MEDICATIONS: Home Medications Medication Instructions Recorded Amlodipine Besylate [Norvasc -] 7.5 mg PO DAILY 08/29/16 Aspirin [Ecotrin] 81 mg PO DAILY 08/29/16 Metoprolol Succinate [Toprol XL -] 50 mg PO DAILY 08/30/16 Atorvastatin Ca [Lipitor] 80 mg PO HS 06/12/17 Ubidecarenone/Vitamin E [Co Q-10 1 tab PO DAILY 06/12/17 50 mg Softgel] Cefuroxime Axetil [Ceftin -] 500 mg PO Q12H #14 tablet 12/05/18 Pantoprazole Sodium [Protonix -] 40 mg PO DAILY #30 tablet.ec 12/05/18 metroNIDAZOLE [Flagyl -] 500 mg PO TID #21 tablet 12/05/18 Albuterol 2.5/Ipratropium 0.5 1 amp NEB RTID #30 amp 12/07/18 [Duoneb -] Nebulizer and Compressor [Easy Air 1 each ASDIR #1 each 12/07/18 Compressor Nebulizer] pt and nephew do not have a list of meds on hand will need med rec in AM also on med for LE edema, states it is not lasix REVIEW OF SYSTEMS CONSTITUTIONAL: Absent: fever, chills, diaphoresis, generalized weakness, malaise, loss of appetite, weight change HEENT: Absent: rhinorrhea, nasal congestion, throat pain, throat swelling, difficulty swallowing, mouth swelling, ear pain, eye pain, visual changes CARDIOVASCULAR: Absent: chest pain, syncope, palpitations, irregular heart rate, lightheadedness , peripheral edema RESPIRATORY: Absent: cough, shortness of breath, dyspnea with exertion, orthopnea, wheezing, stridor, hemoptysis GASTROINTESTINAL: Absent: abdominal pain, abdominal distension, nausea, vomiting, diarrhea, constipation, melena, hematochezia GENITOURINARY: Absent: dysuria, frequency, urgency, hesitancy, hematuria, flank pain, genital pain MUSCULOSKELETAL: Absent: myalgia, arthralgia, joint swelling, back pain, neck pain SKIN: Absent: rash, itching, pallor HEMATOLOGIC/IMMUNOLOGIC: Absent: easy bleeding, easy bruising, lymphadenopathy, frequent infections ENDOCRINE: Absent: unexplained weight gain, unexplained weight loss, heat intolerance, cold intolerance NEUROLOGIC: Absent: headache, focal weakness or paresthesias, dizziness, unsteady gait, seizure, mental status changes, bladder or bowel incontinence PSYCHIATRIC: Absent: anxiety, depression, suicidal or homicidal ideation, hallucinations. PHYSICAL EXAMINATION Vital Signs - 24 hr 01/04/19 19:40 Temperature 97.1 F L Pulse Rate 84 Respiratory 20 Rate Blood Pressure 121/57 L O2 Sat by Pulse 96 Oximetry (%) GENERAL: Very pleasant. Awake, alert, and fully oriented, in no acute distress. HEAD: Normal with no signs of trauma. EYES: Pupils equal, round and reactive to light, extraocular movements intact, sclera anicteric, conjunctiva clear. EARS, NOSE, THROAT: Ears normal, nares patent, oropharynx clear without exudates. Moist mucous membranes. NECK: Normal range of motion, supple without lymphadenopathy, JVD, or masses. LUNGS: Breath sounds equal, clear to auscultation bilaterally. No wheezes, and no crackles. No accessory muscle use. HEART: Regular rate and rhythm, normal S1 and S2 without murmur, rub or gallop. ABDOMEN: Soft, +diffusely TTP on deep palpation, not distended, normoactive bowel sounds, no guarding LOWER EXTREMITIES: 2+ pt pulses, warm, well-perfused. No calf tenderness. 1+ pitting edema NEUROLOGICAL: Cranial nerves II-XII intact. PSYCHIATRIC: Cooperative. SKIN: Warm, dry, normal turgor Laboratory Results 01/04/19 01/04/19 01/04/19 21:50 21:50 21:50 WBC 10.3 H RBC 3.39 L Hgb 9.6 L Hct 29.0 L MCV 85.6 MCH 28.4 MCHC 33.2 RDW 16.0 H Plt Count 424 MPV 7.8 Absolute Neuts (auto) 8.1 H Neutrophils % 78.7 Lymphocytes % 13.2 D Monocytes % 7.4 Eosinophils % 0.3 Basophils % 0.4 D Nucleated RBC % 0 PT with INR 12.30 INR 1.04 PTT (Actin FS) 28.9 Sodium 134 L Potassium 4.3 Chloride 99 Carbon Dioxide 27 Anion Gap 8 BUN 32 H Creatinine 1.8 H Creat Clearance w eGFR 26.68 Random Glucose 102 Lactic Acid Calcium 8.7 Total Bilirubin 0.8 AST 51 H ALT 41 Alkaline Phosphatase 287 H Total Protein 7.1 Albumin 2.4 L Lipase 371 Blood Type Abd sono: prelim read: 1.2cmx1.1cm stone in CBD, CBD dilated to 1.5cm proximal to the stone and is likely obstructed. biliary stent is not well seen on u/s. multiple renal cysts noted. r pl effusion. f/u official read CTAP w/o contrast (Cr 1.8): most of the biliary stent appears to be in the duodenum with only the proximal loop in the distal CBD. dense structure possibly stone in the distal CBD possibly causing obstruction. dilated biliary tree and pneumobilia. bilateral renal cysts. large left adenexal cyst, R pl effusion. f/u official read ASSESSMENT/PLAN: 88 y/o F with PMH HTN, HLD, pancreatitis, cholecystectomy (40-50 yrs ago), 2016 ERCP, who was sent in by PMD, Dr. Caldwell d/t elevated LFTs, WBC ct x 2 weeks. #Choledocholithiasis -has had significant hx of past cholangitis, choledocholithasis (11/2018) -currently without fever or significant leukocytosis. tbili WNL with mild elevation AST however w/elev ALP -prelim reads with CBD stone, dilation. may also need stent revision -hold abx for now -trend CBC, LFTs -GI consult: Dr. Bennett -no IVF, as with lower ext edema -pain is controlled #AMALIA -pre-renal, possibly 2/2 dehydration -encourage PO intake. has LE edema, avoid IVF #HTN- controlled -c/w amlodipine, toprol #HLD -will hold lipitor -cont to trend LFTs, if without rise can restart #F/E/N no IVF indicated at this time. encourage PO intake continue to follow lytes NPO for now. can start on diet in AM #PPX DVT: hep 5k SQ TID GI: on protonix #Dispo admit to med-surg Visit type - Emergency Visit Emergency Visit: Yes ED Registration Date: 01/04/19 Care time: The patient presented to the Emergency Department on the above date and was hospitalized for further evaluation of their emergent condition. - New Patient This patient is new to me today: Yes Date on this admission: 01/05/19 - Critical Care Critical Care patient: No
--- NOTE | 2019-01-05 00:55 | PN ---
Teaching Attending Note Name of Resident: Candie Matson ATTENDING PHYSICIAN STATEMENT I saw and evaluated the patient. I reviewed the resident's note and discussed the case with the resident. I agree with the resident's findings and plan as documented. SUBJECTIVE: This is an 88 year old woman with a history of HTN, hyperlipidemia, remote cholecystectomy, pancreatitis, stage 3 CKD who was advised to come to the ED by her PCP because of abnormal LFTs and leukocytosis. The patient had presented here on December 01 with abdominal pain. She was treated for sepsis, cholangitis, and choledocholithiasis. ERCP with sphincterotomy was done and 2 stones were extracted. A third stone could not be extracted, so a CBD stent was placed. Repeat ERCP and ultrasonic lithotripsy were recommended and she is scheduled to see Dr. Rossi at [facility] on January 09. Today, she had labs done and her WBC was 15.2, alk phos 299. OBJECTIVE: Vital Signs Period Temp Pulse Resp BP Sys/Gudino Pulse Ox Last 24 Hr 97.1 F 84 20 121/57 96 HEART: S1S2, RRR LUNGS: Clear ABDOMEN: Soft, non-distended, (+) diffuse tenderness, normal BS EXTREMITIES: 1+ edema Laboratory Tests 01/04/19 01/04/19 01/04/19 21:50 21:50 21:50 WBC 10.3 H RBC 3.39 L Hgb 9.6 L Hct 29.0 L MCV 85.6 MCH 28.4 MCHC 33.2 RDW 16.0 H Plt Count 424 MPV 7.8 Absolute Neuts (auto) 8.1 H Neutrophils % 78.7 Lymphocytes % 13.2 D Monocytes % 7.4 Eosinophils % 0.3 Basophils % 0.4 D Nucleated RBC % 0 PT with INR 12.30 INR 1.04 PTT (Actin FS) 28.9 Sodium 134 L Potassium 4.3 Chloride 99 Carbon Dioxide 27 Anion Gap 8 BUN 32 H Creatinine 1.8 H Creat Clearance w eGFR 26.68 Random Glucose 102 Lactic Acid Calcium 8.7 Total Bilirubin 0.8 AST 51 H ALT 41 Alkaline Phosphatase 287 H Total Protein 7.1 Albumin 2.4 L Lipase 371 Blood Type Antibody Screen 01/04/19 01/04/19 01/04/19 21:50 21:50 21:50 WBC RBC Hgb Hct MCV MCH MCHC RDW Plt Count MPV Absolute Neuts (auto) Neutrophils % Lymphocytes % Monocytes % Eosinophils % Basophils % Nucleated RBC % PT with INR INR PTT (Actin FS) Sodium Cancelled Potassium Cancelled Chloride Cancelled Carbon Dioxide Cancelled Anion Gap Cancelled BUN Cancelled Creatinine Cancelled Creat Clearance w eGFR Cancelled Random Glucose Cancelled Lactic Acid 1.4 Calcium Cancelled Total Bilirubin AST ALT Alkaline Phosphatase Total Protein Albumin Lipase Blood Type Cancelled Antibody Screen Cancelled Home Medications Medication Instructions Recorded Amlodipine Besylate [Norvasc -] 7.5 mg PO DAILY 08/29/16 Aspirin [Ecotrin] 81 mg PO DAILY 08/29/16 Metoprolol Succinate [Toprol XL -] 50 mg PO DAILY 08/30/16 Atorvastatin Ca [Lipitor] 80 mg PO HS 06/12/17 Ubidecarenone/Vitamin E [Co Q-10 1 tab PO DAILY 06/12/17 50 mg Softgel] Cefuroxime Axetil [Ceftin -] 500 mg PO Q12H #14 tablet 12/05/18 Pantoprazole Sodium [Protonix -] 40 mg PO DAILY #30 tablet.ec 12/05/18 metroNIDAZOLE [Flagyl -] 500 mg PO TID #21 tablet 12/05/18 Albuterol 2.5/Ipratropium 0.5 1 amp NEB RTID #30 amp 12/07/18 [Duoneb -] Nebulizer and Compressor [Easy Air 1 each ASDIR #1 each 12/07/18 Compressor Nebulizer] ASSESSMENT AND PLAN: This is an 88 year old woman with a history of HTN, hyperlipidemia, remote cholecystectomy, pancreatitis, stage 3 CKD who presented to the ED because of abnormal LFTs and leukocytosis. 1. Choledocholithiasis - s/p ERCP, sphincterotomy, stone extraction, stent placement on 12/01/18 - Has appointment next week with Dr. Rossi for possible ultrasonic lithotripsy - Had WBC 15.2 and alk phos 299 this morning, but now WBC 10.3 and alk phos 287 with no fevers, no jaundice, and no evidence of cholangitis - Hold antibiotics pending results of CT and US 2. HTN - Continue Norvasc, Toprol XL 3. Hyperlipidemia - Continue Lipitor 4. Acute kidney injury on stage 3 CKD - Cautious hydration - Monitor creatinine
[2019-01-05 04:24] VITALS: BMI 22.8
[2019-01-05] MEDS: HEPARIN NA (PORCINE) 5,000 UNITS/ML 1ML VIAL SQ SCH ×3 (06:28→22:08)
[2019-01-05 07:27] LABS: BASO % 0.3 % (0-2.0); EOS % 0.3 % (0-4.5); HEMATOCRIT 27.7 % (32.4-45.2); HEMOGLOBIN 9.3 GM/dL (10.7-15.3); LYMPH % 8.1 % (8-40); MCH 28.4 pg (25.7-33.7); MCHC 33.5 g/dl (32.0-36.0); MEAN CELL VOLUME 84.7 fl (80-96); MEAN PLT VOLUME 7.7 fl (7.5-11.1); MONO % 6.9 % (3.8-10.2); NEUT % 84.4 % (42.8-82.8); PLATELET COUNT 398 K/MM3 (134-434); RBC 3.27 M/mm3 (3.60-5.2); RDW 15.5 % (11.6-15.6); WHITE BLOOD COUNT 11.6 K/mm3 (4.0-10.0)
[2019-01-05 07:38] LABS: ALBUMIN 2.2 g/dl (3.4-5.0); ALK PHOS 261 U/L (45-117); ANION GAP 9 MMOL/L (8-16); BILIRUBIN,TOTAL 0.7 mg/dL (0.2-1); BLOOD UREA NITROGEN 27 mg/dL (7-18); CALCIUM 8.3 mg/dL (8.5-10.1); CHLORIDE 102 mmol/L (98-107); CO2 26 mmol/L (21-32); CREATININE 1.3 mg/dL (0.55-1.3); GLUCOSE,RANDOM 98 mg/dL (74-106); MAGNESIUM 1.8 mg/dL (1.8-2.4); POTASSIUM 3.9 mmol/L (3.5-5.1); SGOT/AST 39 U/L (15-37); SGPT/ALT 35 U/L (13-61); SODIUM 136 mmol/L (136-145); TOT PROT 6.4 g/dl (6.4-8.2)
[2019-01-05] MEDS ORDERED: amLODIPine BESYLATE 5 MG TABLET (FP) ONE (09:20)
[2019-01-05] MEDS ORDERED: amLODIPine BESYLATE 2.5 MG TABLET (FP) ONE (09:21)
[2019-01-05] MEDS: PANTOPRAZOLE 40 MG TABLET (FP) PO SCH (09:24)
[2019-01-05] MEDS: AMLODIPINE BESYLATE 5 MG, AMLODIPINE BESYLATE 2.5 MG PO SCH (09:26)
[2019-01-05] MEDS ORDERED: ASPIRIN COATED 81 MG TABLET.EC PO SCH (10:00)
[2019-01-05] MEDS ORDERED: amLODIPine BESYLATE 2.5 MG TABLET (FP) PO SCH (10:00)
--- NOTE | 2019-01-05 11:07 | PN ---
Progress Note, Physician Chief Complaint: Ms Han says she is feeling tired today but otherwise is without complaint. Denies cp, sob, n/v. - Current Medication List Current Medications: Active Medications Amlodipine Besylate 5 mg/ (Amlodipine Besylate 2.5 mg) 7.5 mg PO DAILY [facility] Last Admin: 01/05/19 09:26 Dose: 7.5 mg Aspirin (Ecotrin -) 81 mg PO DAILY [facility] Last Admin: 01/05/19 09:24 Dose: 81 mg Heparin Sodium (Porcine) (Heparin -) 5,000 unit SQ TID [facility] Last Admin: 01/05/19 06:28 Dose: 5,000 unit Metoprolol Succinate (Toprol Xl -) 50 mg PO DAILY [facility] Last Admin: 01/05/19 09:24 Dose: 50 mg Pantoprazole Sodium (Protonix -) 40 mg PO DAILY [facility] Last Admin: 01/05/19 09:24 Dose: 40 mg - Objective Vital Signs: Vital Signs Temperature 37.1 C 01/05/19 09:21 Pulse Rate 79 01/05/19 09:21 Respiratory Rate 20 01/05/19 09:21 Blood Pressure 137/53 L 01/05/19 09:21 O2 Sat by Pulse Oximetry (%) 96 01/05/19 09:00 Constitutional: Yes: Well Nourished, No Distress, Calm Cardiovascular: Yes: Regular Rate and Rhythm. No: Gallop, Murmur, Rub Respiratory: Yes: Regular, CTA Bilaterally. No: Rales, Rhonchi, Wheezes Gastrointestinal: Yes: Normal Bowel Sounds, Soft. No: Distention, Tenderness Extremities: Yes: WNL Edema: No Labs: CBC, BMP 01/05/19 05:30 01/05/19 05:30 INR, PTT INR 1.04 (0.83-1.09) 01/04/19 21:50 Problem List - Problems (1) Leukocytosis Assessment/Plan: -no sign of infectious process currently -monitor Code(s): D72.829 - ELEVATED WHITE BLOOD CELL COUNT, UNSPECIFIED (2) AMALIA (acute kidney injury) Assessment/Plan: -resolved Code(s): N17.9 - ACUTE KIDNEY FAILURE, UNSPECIFIED (3) Biliary tract obstruction Assessment/Plan: -noted to have large obstructing stone on ultrasound, unchanged from last admission -planning to be evaluated at OSH for lithotripsy -? if biliary stent has moved -awaiting CT scan read -GI consulted Code(s): K83.1 - OBSTRUCTION OF BILE DUCT (4) HTN (hypertension) Assessment/Plan: -continue amlodipine and toprol xl Code(s): I10 - ESSENTIAL (PRIMARY) HYPERTENSION (5) Hypercholesteremia Assessment/Plan: -can restart statin on discharge Code(s): E78.00 - PURE HYPERCHOLESTEROLEMIA, UNSPECIFIED
--- NOTE | 2019-01-05 11:40 | EKG ---
Test Reason : Blood Pressure : / mmHG Vent. Rate : 074 BPM Atrial Rate : 074 BPM P-R Int : 138 ms QRS Dur : 072 ms QT Int : 394 ms P-R-T Axes : 042 024 040 degrees QTc Int : 437 ms NORMAL SINUS RHYTHM NORMAL ECG WHEN COMPARED WITH ECG OF 03-DEC-2018 09:07, NO SIGNIFICANT CHANGE WAS FOUND Confirmed by JOSE L DALTON MD ([id number]) on 01/05/2019 11:39:52 AM Referred By: Confirmed By:JOSE L DALTON MD
--- NOTE | 2019-01-05 12:21 | CON.GI ---
Consult Consult Specialty:: GI: Covering for Dr. bennett Referred by:: Dr. Adolfo aSnz Reason for Consultation:: Abnormal liver chemistries - History of Present Illness Chief Complaint: Abnormal LFTs History of Present Illness: 88F admitted from her PMDs office secondary to elevated liver chemistries. she denies abdominal pain, fevers/chills or cough. She describes a chronic dry cough and had diarrhea over the last couple of weeks, worse two weeks ago. She denies rectal bleeding or jeane melena. She underwent ERCP performed by Dr. Bennett 12/03/18 that led to the removal of two CBD stones. There was a larger 2cm stone that could not be removed. Stent placement, therefore, was performed. US performed last night revealed the CBD stone and non dilated CBD. Ct scan was reviewed with Dr. Corona lopez. He felt that the intraductal portion of the pigtail catheter was at the level of the large CBD stone. There was an area of low attenuation in the right lobe of liver. he reviewed the MRI from and he did not see an obvious mass. he questioned fatty infiltration. - Past Medical History Cardio/Vascular: Yes: Hyperlipdemia Gastrointestinal: Yes: Pancreatitis Hepatobiliary: Yes: Choledocholithiasis - Past Surgical History Past Surgical History: Yes: Cholecystectomy (Open) - Alcohol/Substance Use Hx Alcohol Use: No - Smoking History Smoking history: Former smoker Have you smoked in the past 12 months: No - Social History ADL: Family Assistance Place of : [facility] History of Recent Travel: No Home Medications - Allergies Allergies/Adverse Reactions: Allergies Allergy/AdvReac Type Severity Reaction Status Date / Time No Known Allergies Allergy Verified 12/01/18 07:48 - Home Medications Home Medications: Ambulatory Orders Amlodipine Besylate [Norvasc -] 7.5 mg PO DAILY 08/29/16 Aspirin [Ecotrin] 81 mg PO DAILY 08/29/16 Metoprolol Succinate [Toprol XL -] 50 mg PO DAILY 08/30/16 Atorvastatin Ca [Lipitor] 80 mg PO HS 06/12/17 Ubidecarenone/Vitamin E [Co Q-10 50 mg Softgel] 1 tab PO DAILY 06/12/17 Cefuroxime Axetil [Ceftin -] 500 mg PO Q12H #14 tablet 12/05/18 Pantoprazole Sodium [Protonix -] 40 mg PO DAILY #30 tablet.ec 12/05/18 metroNIDAZOLE [Flagyl -] 500 mg PO TID #21 tablet 12/05/18 Albuterol 2.5/Ipratropium 0.5 [Duoneb -] 1 amp NEB RTID #30 amp 12/07/18 Nebulizer and Compressor [Easy Air Compressor Nebulizer] 1 each ASDIR #1 each 12/07/18 Review of Systems - Review of Systems Respiratory: reports: Cough. denies: SOB Gastrointestinal: denies: Abdominal Pain, Melena, Rectal Bleeding Physical Exam-GI Vital Signs: Vital Signs Temperature 99.1 rectal 01/05/19 1200 Pulse Rate 79 01/05/19 1200 Respiratory Rate 01/05/19 1200 Blood Pressure 01/05/19 1200 O2 Sat by Pulse Oximetry (%) 01/05/19 1200 Constitutional: Yes: Calm Eyes: No: Sclera Icterus Cardiovascular: Yes: Regular Rate and Rhythm ...Rectal Exam: Yes: Other (+ external skin tags, no masses, no blood/stool in rectal vault) Edema: No (No LE edema) Neurological: Yes: Alert, Oriented Labs: CBC, BMP 01/05/19 05:30 01/05/19 05:30 INR, PTT INR 1.04 (0.83-1.09) 01/04/19 21:50 Hepatic Panel Total Bilirubin 0.7 mg/dL (0.2-1) 01/05/19 05:30 AST 39 U/L (15-37) H 01/05/19 05:30 ALT 35 U/L (13-61) 01/05/19 05:30 Alkaline Phosphatase 261 U/L (45-117) H 01/05/19 05:30 Albumin 2.2 g/dl (3.4-5.0) L 01/05/19 05:30 Imaging - Results Cat Scan: Report Reviewed, Image Reviewed Problem List - Problems (1) Choledocholithiasis Assessment/Plan: Discussed imaging dfindings with biliary endoscopist Dr. Bennett, in particular the position of the pigtail portion of the intraductal stent being at the level of the large CBD stone. Given leukocytosis on admission and persistently elevated ALP, which he felt should have normalized by now, He advised transfer to [facility] for further evaluation for ERCP and lithotripsy as opposed to her waiting for upcoming outpatient appointment. I discussed with Dr. Sanz Advise: Abx coverage for now Exclude C. Diff given h/o diarrhea over the last 2 weeks and recent hospitalization Ceasar noted: no bleeding history at home or sicne admission. No blood/melena noted on HALLIE. Continue to monitor Would discontinue ASA given potential for upcoming procedure Code(s): K80.50 - CALCULUS OF BILE DUCT W/O CHOLANGITIS OR CHOLECYST W/O OBST
[2019-01-06] MEDS: HEPARIN NA (PORCINE) 5,000 UNITS/ML 1ML VIAL SQ SCH ×2 (06:10→14:38)
[2019-01-06 07:23] LABS: BASO % 0.8 % (0-2.0); EOS % 0.2 % (0-4.5); HEMATOCRIT 30.7 % (32.4-45.2); HEMOGLOBIN 10.1 GM/dL (10.7-15.3); LYMPH % 12.4 % (8-40); MEAN CELL VOLUME 84.9 fl (80-96); MEAN PLT VOLUME 7.8 fl (7.5-11.1); NEUT % 79.6 % (42.8-82.8); PLATELET COUNT 429 K/MM3 (134-434); RBC 3.62 M/mm3 (3.60-5.2); RDW 15.8 % (11.6-15.6)
[2019-01-06 07:45] LABS: ALBUMIN 2.4 g/dl (3.4-5.0); ALK PHOS 300 U/L (45-117); ANION GAP 8 MMOL/L (8-16); BILIRUBIN,DIRECT 0.4 mg/dL (0.0-0.2); BILIRUBIN,TOTAL 0.8 mg/dL (0.2-1); BLOOD UREA NITROGEN 21 mg/dL (7-18); CALCIUM 8.2 mg/dL (8.5-10.1); CHLORIDE 102 mmol/L (98-107); CO2 27 mmol/L (21-32); CREATININE 1.3 mg/dL (0.55-1.3); GLUCOSE,RANDOM 89 mg/dL (74-106); MAGNESIUM 1.8 mg/dL (1.8-2.4); PHOSPHOROUS 2.6 mg/dL (2.5-4.9); POTASSIUM 4.1 mmol/L (3.5-5.1); SGOT/AST 45 U/L (15-37); SGPT/ALT 36 U/L (13-61); SODIUM 137 mmol/L (136-145); TOT PROT 6.8 g/dl (6.4-8.2)
[2019-01-06] MEDS ORDERED: amLODIPine BESYLATE 5 MG TABLET (FP) ONE (10:00)
[2019-01-06] MEDS ORDERED: amLODIPine BESYLATE 2.5 MG TABLET (FP) ONE (10:01)
[2019-01-06] MEDS: PANTOPRAZOLE 40 MG TABLET (FP) PO SCH (10:48)
[2019-01-06] MEDS ORDERED: SODIUM CHLORIDE 250 ML IV STA (11:30)
[2019-01-06] MEDS: AMLODIPINE BESYLATE 5 MG, AMLODIPINE BESYLATE 2.5 MG PO SCH (12:03)
[2019-01-06] MEDS ORDERED: ALBUTEROL SO4 2.5/IPRATROPIUM 0.5 INH SOL 3 ML VIAL.NEB. NEB SCH (14:00)
[2019-01-06 14:30] VITALS: PULSE 79
[2019-01-06] MEDS ORDERED: SODIUM CHLORIDE 500 ML IV STA (14:34)
[2019-01-06] MEDS ORDERED: PIPERACILLIN/TAZOB 3.375 GM 3.375 GM in DEXTROSE 5%-WATER - 50 ML IVPB ONE (14:35)
--- NOTE | 2019-01-06 14:38 | PN.GI ---
GI Progress Note Subjective: Patient states feeling well Noted hypotensive today Scant BM's. C. Diff antigen +. Started on PO Vanco - Objective Vital Signs: Vital Signs Temperature 98 F 01/06/19 12:32 Pulse Rate 79 01/06/19 14:29 Respiratory Rate 18 01/06/19 14:29 Blood Pressure 99/57 L 01/06/19 14:29 O2 Sat by Pulse Oximetry (%) 96 01/05/19 21:00 Constitutional: Calm Eyes: No: Sclera Icterus Cardiovascular: Yes: Regular Rate and Rhythm Respiratory: Yes: CTA Bilaterally Gastrointestinal Inspection: No: Distention ...Auscultate: Yes: Normoactive Bowel Sounds ...Palpate: No: Tenderness Neurological: Yes: Alert Labs: CBC, BMP 01/06/19 06:30 01/06/19 06:30 INR, PTT INR 1.04 (0.83-1.09) 01/04/19 21:50 Problem List - Problems (1) Choledocholithiasis Assessment/Plan: Clinically appears well despite hypotension. No abdominal pain or fevers noted however WBC has increased. Discussed with Dr. Sanz. he had discussed the plan for transfer with her nephew yesterday who wanted her transferred tomorrow , not today. Given hypotension and potential for biliary sepsis, I advised transfer today and called the [facility] transfer center. Spoke with Dr. Sancho Rossi this afternoon who accepted the patient for transfer. Discussed with Dr. Sanz. Adivsed escalating Abx therapy as well to zosyn. Discussed plan with Dr. Sanz. For repeat fluid bolus. On PO vanco, however, scant BM's noted. Check C. Diff toxin PCR Code(s): K80.50 - CALCULUS OF BILE DUCT W/O CHOLANGITIS OR CHOLECYST W/O OBST
[2019-01-06 15:14] VITALS: BP 111/55; TEMP 98
[2019-01-06] MEDS ORDERED: SODIUM CHLORIDE 1,000 ML IV SCH (15:34)
--- NOTE | 2019-01-06 16:05 | DS ---
Physical Examination Vital Signs: Vital Signs Temperature 36.7 C 01/06/19 15:11 Pulse Rate 79 01/06/19 15:11 Respiratory Rate 18 01/06/19 15:11 Blood Pressure 111/55 L 01/06/19 15:11 O2 Sat by Pulse Oximetry (%) 96 01/05/19 21:00 Constitutional: Yes: Well Nourished, No Distress, Calm Cardiovascular: Yes: Regular Rate and Rhythm. No: Gallop, Murmur, Rub Respiratory: Yes: Regular, CTA Bilaterally. No: Rales, Rhonchi, Wheezes Gastrointestinal: Yes: Normal Bowel Sounds, Soft. No: Distention, Tenderness Extremities: Yes: WNL Edema: No Labs: CBC, BMP 01/06/19 06:30 01/06/19 06:30 Discharge Summary Reason For Visit: ELEVATED LIVER ENZYMES, ABDOMINAL PAIN Current Active Problems AMALIA (acute kidney injury) (Acute) Abdominal pain (Acute) Choledocholithiasis (Acute) Leukocytosis (Acute) Liver enzyme elevation (Acute) Hospital Course: (1) Leukocytosis Code(s): D72.829 - ELEVATED WHITE BLOOD CELL COUNT, UNSPECIFIED (2) AMALIA (acute kidney injury) Code(s): N17.9 - ACUTE KIDNEY FAILURE, UNSPECIFIED (3) Biliary tract obstruction Code(s): K83.1 - OBSTRUCTION OF BILE DUCT (4) HTN (hypertension) Code(s): I10 - ESSENTIAL (PRIMARY) HYPERTENSION (5) Hypercholesteremia Code(s): E78.00 - PURE HYPERCHOLESTEROLEMIA, UNSPECIFIED Ms Han is a very pleasant 88 year old female who was sent in from the community secondary to leukocytosis and elevated alk phos. She was feeling well but had repeated elevation and there was concern for infection. She presented to the ED and was admitted. She had slight elevation of her WBCs but it began to rise while here. She also had sustained elevation of her alkaline phosphatase. She was seen by GI and it was concerning that her alkaline phosphatase was not declining. Today she began to have hypotension, even though she was asymptomatic there is concern for possible biliary sepsis considering rising leukocytosis and hypotension. Case was d/w Dr Sargent who graciously reached out to [facility] for transfer as the ultimate treatment ( removal of the stone) cannot be performed at this hospital. He d/w Dr Kingsley who accepted her in transfer. She received IVF and a dose of zosyn prior to transfer. She is being transferred to [facility] for further care and treatment. 32 minutes spent in care and transfer of this patient - Instructions - Home Medications Comprehensive Discharge Medication List: Ambulatory Orders Amlodipine Besylate [Norvasc -] 7.5 mg PO DAILY 08/29/16 Aspirin [Ecotrin] 81 mg PO DAILY 08/29/16 Metoprolol Succinate [Toprol XL -] 50 mg PO DAILY 08/30/16 Atorvastatin Ca [Lipitor] 80 mg PO HS 06/12/17 Ubidecarenone/Vitamin E [Co Q-10 50 mg Softgel] 1 tab PO DAILY 06/12/17 Cefuroxime Axetil [Ceftin -] 500 mg PO Q12H #14 tablet 12/05/18 Pantoprazole Sodium [Protonix -] 40 mg PO DAILY #30 tablet.ec 12/05/18 metroNIDAZOLE [Flagyl -] 500 mg PO TID #21 tablet 12/05/18 Albuterol 2.5/Ipratropium 0.5 [Duoneb -] 1 amp NEB RTID #30 amp 12/07/18 Nebulizer and Compressor [Easy Air Compressor Nebulizer] 1 each ASDIR #1 each 12/07/18
[2019-01-06] MEDS ORDERED: VANCOMYCIN 250 MG/5 ML ORAL SOLUTION PO SCH (18:00)
[2019-01-06] MEDS ORDERED: ATORVASTATIN CA 80 MG TABLET (FP) PO SCH (22:00)
== END 2019-01-06 16:30 | disposition short-term general hospital (02) | DRG 445 ==
LOC: JER 19:24 → JERBED 23:51 → J5S 01-05 04:00
PROVIDERS: ADMIT Internal Medicine; ATTEND Internal Medicine
DX: K80.51 Calculus of bile duct without cholangitis or cholecystitis with obstruction (principal); J90 Pleural effusion, not elsewhere classified; N17.9 Acute kidney failure, unspecified; K80.50 Calculus of bile duct without cholangitis or cholecystitis without obstruction; E78.5 Hyperlipidemia, unspecified; N28.1 Cyst of kidney, acquired; E86.0 Dehydration; I12.9 Hypertensive chronic kidney disease with stage 1 through stage 4 chronic kidney disease, or unspecified chronic kidney disease; N18.3 Chronic kidney disease, stage 3 (moderate); D72.829 Elevated white blood cell count, unspecified; I95.9 Hypotension, unspecified; N83.8 Other noninflammatory disorders of ovary, fallopian tube and broad ligament
CPT/HCPCS: 36415; 74176-TC; 76705-TC; 80048; 80053; 80076; 81003; 83605; 83690; 83735; 84100; 85025; 85027; 85610; 85730; 87086; 87186; 87324; 87449; 93005; 93010; 94640; 97110-GP; 97116-GP; 99284-25; J1644